=== PATIENT | male | born 1965 | race Caucasian/White ===

== ENCOUNTER 2016-07-14 17:51 | Inpatient (IN) | payer MEDICARE, MEDICAID ==
[~2016-07-14] VITALS: Ht 188 cm; Wt 67.1 kg
[~2016-07-14 17:51] MED LIST: CARB200T6 PO; NALT50TA10 PO; QUET200T PO; RISP3 PO
[2016-07-14 19:16] VITALS: BP 177/114
[2016-07-14] MEDS ORDERED: ZOLPIDEM TARTRATE 10 MG TABLET PO PRN (20:45)
[2016-07-14] MEDS ORDERED: QUEtiapine FUMARATE 100 MG TABLET PO PRN (20:45)
[2016-07-14] MEDS ORDERED: CarBAMazepine 200 MG TABLET PO SCH (20:57)
[2016-07-14] MEDS ORDERED: QUEtiapine FUMARATE 200 MG TABLET PO SCH (21:00)
[2016-07-14] MEDS ORDERED: CloNIDine HCL 0.1 MG TABLET PO ONE (21:30)
[2016-07-14 21:33] LABS: BASOPHILS # (AUTO) 0.08 K/uL (0.00-0.20); BASOPHILS % (AUTO) 1.1 % (0.0-2.0); HEMATOCRIT 44.9 % (41-53); HEMOGLOBIN 14.9 g/dL (13.5-17.5); LYMPHOCYTES # (AUTO) 1.8 K/uL (1.0-4.8); LYMPHOCYTES % (AUTO) 24.1 % (22.0-44.0); MEAN CORPUSCULAR HEMOGLOBIN 29.9 pg (26.0-34.0); MEAN CORPUSCULAR HGB CONC 33.2 G/dL (31.0-37.0); MEAN CORPUSCULAR VOLUME 90 fL (80-100); MONOCYTES # (AUTO) 0.5 K/uL (0.1-1.0); MONOCYTES % (AUTO) 6.7 % (2.0-9.0); NEUTROPHILS # (AUTO) 4.9 K/uL (1.8-7.7); NEUTROPHILS % (AUTO) 66.8 % (40.0-70.0); PLATELET COUNT (AUTO) 177 K/uL (150-450); RED BLOOD CELL COUNT(AUTO) 4.99 MIL/uL (4.50-5.90); RED CELL DISTRIBUTION WIDTH 13.7 % (11.5-14.5); WHITE BLOOD COUNT (AUTO) 7.4 K/uL (4.5-11.0)
[2016-07-14 22:00] LABS: ANION GAP 7 mmol/L (8-16); CARBON DIOXIDE 29 mmol/L (22-29); CHLORIDE 103 mmol/L (98-107); CREATININE 0.82 mg/dL (0.60-1.30); GLOMERULAR FILTR. RATE CALC > 60 mL/min (>60); POTASSIUM 4.5 mmol/L (3.5-5.1); SODIUM SERUM 139 mmol/L (136-145); UREA NITROGEN, BLOOD 11 mg/dL (7-18)
[2016-07-14 22:05] LABS: ALANINE AMINOTRANSFERASE 32 U/L (12-78); ALBUMIN 3.9 g/dL (3.4-5.0); ASPARTATE AMINOTRANSFERASE 23 U/L (15-37); BILIRUBIN,TOTAL 0.3 mg/dL (0.1-1.0); TOTAL PROTEIN, SERUM 7.9 g/dL (6.4-8.2)
[2016-07-14] MEDS ORDERED: LABETALOL HCL 5 MG/ML 20 ML VIAL IVP ONE (22:30)
[2016-07-15 01:01] VITALS: BP 133/90
[2016-07-15 07:34] LABS: BASOPHILS # (AUTO) 0.05 K/uL (0.00-0.20); BASOPHILS % (AUTO) 0.8 % (0.0-2.0); EOSINOPHILS # (AUTO) 0.16 K/uL (0.00-0.70); EOSINOPHILS % (AUTO) 2.81 % (1.0-6.0); HEMATOCRIT 40.5 % (41-53); LYMPHOCYTES % (AUTO) 36.2 % (22.0-44.0); MEAN CORPUSCULAR HEMOGLOBIN 30.4 pg (26.0-34.0); MEAN CORPUSCULAR HGB CONC 34.5 G/dL (31.0-37.0); MEAN CORPUSCULAR VOLUME 88 fL (80-100); MONOCYTES # (AUTO) 0.4 K/uL (0.1-1.0); MONOCYTES % (AUTO) 7.7 % (2.0-9.0); NEUTROPHILS # (AUTO) 2.9 K/uL (1.8-7.7); NEUTROPHILS % (AUTO) 52.4 % (40.0-70.0); PLATELET COUNT (AUTO) 147 K/uL (150-450); RED BLOOD CELL COUNT(AUTO) 4.59 MIL/uL (4.50-5.90); WHITE BLOOD COUNT (AUTO) 5.6 K/uL (4.5-11.0)
[2016-07-15 07:56] LABS: HEMOGLOBIN A1C 5.6 % (4.5-6.2)
[2016-07-15 08:00] VITALS: BP 144/96
[2016-07-15] MEDS: CarBAMazepine 200 MG TABLET PO SCH ×2 (08:00→16:23)
[2016-07-15] MEDS: LORazepam 2 MG TABLET PO PRN ×2 (08:00→15:42)
[2016-07-15 08:01] LABS: ALANINE AMINOTRANSFERASE 25 U/L (12-78); ALBUMIN 3.4 g/dL (3.4-5.0); ANION GAP 10 mmol/L (8-16); ASPARTATE AMINOTRANSFERASE 22 U/L (15-37); BILIRUBIN,TOTAL 0.2 mg/dL (0.1-1.0); CALCIUM, TOTAL 8.7 mg/dL (8.8-10.5); CARBON DIOXIDE 26 mmol/L (22-29); CHLORIDE 106 mmol/L (98-107); CHOL/HDL RATIO 2.9 (4.2-7.3); CREATININE 0.73 mg/dL (0.60-1.30); GLOMERULAR FILTR. RATE CALC > 60 mL/min (>60); POTASSIUM 4.1 mmol/L (3.5-5.1); SODIUM SERUM 142 mmol/L (136-145); THYROID STIMULATING HORMONE 2.35 uIU/mL (0.36-3.74); TOTAL PROTEIN, SERUM 6.9 g/dL (6.4-8.2); UREA NITROGEN, BLOOD 14 mg/dL (7-18)
[2016-07-15] MEDS ORDERED: NALTREXONE HCL 50 MG TABLET PO SCH (09:00)
[2016-07-15] MEDS ORDERED: HydrOXYzine PAMOATE 50 MG CAPSULE PO PRN (12:15)
[2016-07-15] MEDS ORDERED: ACETAMINOPHEN 325 MG TABLET PO PRN (12:15)
[2016-07-15] MEDS ORDERED: MAG HYDROX/AL HYDROX/SIMETH ES 30 ML SUSPENSION UDCUP PO PRN (12:15)
[2016-07-15] MEDS ORDERED: GuaiFENesin/D-METHORPHAN [SUGAR-FREE] 200-20MG/10 ML SYRUP UDCUP PO PRN (12:15)
[2016-07-15] MEDS ORDERED: MAGNESIUM HYDROXIDE SUSPENSION 30 ML UDCUP PO PRN (12:15)
[2016-07-15] MEDS ORDERED: LOPERAMIDE HCL 2 MG CAPSULE PO PRN (12:15)
[2016-07-15] MEDS ORDERED: PROMETHAZINE HCL 25 MG TABLET PO PRN (12:15)
[2016-07-15] MEDS ORDERED: CARB200T6 PO (16:02)
[2016-07-15] MEDS ORDERED: QUET200T29 PO (16:02)
[2016-07-15] MEDS ORDERED: NALT50 PO (16:02)
[2016-07-15] MEDS ORDERED: THIAMINE HCL 100 MG TABLET PO SCH (17:00)
[2016-07-16] MEDS ORDERED: FOLIC ACID 1 MG TABLET PO SCH (09:00)
[2016-07-16] MEDS ORDERED: MULTIVITAMINS WITH MINERALS, THERAPEUTIC TABLET PO SCH (09:00)
[2016-07-16] MEDS ORDERED: CHOLECALCIFEROL (VIT D3) 5,000 UNITS CAPSULE PO SCH (09:00)
== END 2016-07-15 17:00 | disposition home or self-care (01) | DRG 885 ==
LOC: BV PSY EVL 20:28 → 3EX 20:45
PROVIDERS: ADMIT Psychiatry & Neurology Psychiatry; ATTEND Psychiatry & Neurology Psychiatry
PROC: GZ51ZZZ Individual Psychotherapy, Behavioral (ICD-10-PCS; principal; 2016-07-14)
DX: F25.0 Schizoaffective disorder, bipolar type (principal); G47.00 Insomnia, unspecified; F31.60 Bipolar disorder, current episode mixed, unspecified; F20.0 Paranoid schizophrenia; I10 Essential (primary) hypertension; J44.9 Chronic obstructive pulmonary disease, unspecified; K21.9 Gastro-esophageal reflux disease without esophagitis; F17.210 Nicotine dependence, cigarettes, uncomplicated; F15.90 Other stimulant use, unspecified, uncomplicated; B19.20 Unspecified viral hepatitis C without hepatic coma; Z88.6 Allergy status to analgesic agent; I25.2 Old myocardial infarction; Z88.5 Allergy status to narcotic agent; Z88.8 Allergy status to other drugs, medicaments and biological substances; Z79.899 Other long term (current) drug therapy; Z59.0 Homelessness; Z98.890 Other specified postprocedural states; Z91.19 Patient's noncompliance with other medical treatment and regimen; Z90.49 Acquired absence of other specified parts of digestive tract
CPT/HCPCS: 83036; 84439; 84443; 93005; 99285; J3490

== ENCOUNTER 2016-08-23 22:05 | Inpatient (IN) | payer MEDICARE, MEDICAID ==
[~2016-08-23] VITALS: Ht 188 cm; Wt 65.3 kg
[~2016-08-23 22:05] MED LIST changes: +NALT50 PO; -NALT50TA10 PO; -QUET200T PO; +QUET200T29 PO; -RISP3 PO
[2016-08-23] MEDS ORDERED: HALOPERIDOL 5 MG TABLET PO PRN (22:45)
[2016-08-23 22:53] VITALS: BP 141/105
[2016-08-23] MEDS ORDERED: RISP3 PO (23:41)
[2016-08-23] MEDS ORDERED: CARB200T6 PO (23:41)
[2016-08-23] MEDS ORDERED: BENA20 PO (23:41)
[2016-08-24] MEDS ORDERED: LORazepam 2 MG TABLET PO ONE (00:30)
[2016-08-24] MEDS ORDERED: BENAZEPRIL HCL 10 MG TABLET PO ONE (00:30)
[2016-08-24 00:42] LABS: BASOPHILS # (AUTO) 0.04 K/uL (0.00-0.20); BASOPHILS % (AUTO) 0.7 % (0.0-2.0); EOSINOPHILS # (AUTO) 0.24 K/uL (0.00-0.70); EOSINOPHILS % (AUTO) 3.55 % (1.0-6.0); HEMATOCRIT 39.6 % (41-53); HEMOGLOBIN 13.3 g/dL (13.5-17.5); LYMPHOCYTES # (AUTO) 2.3 K/uL (1.0-4.8); MEAN CORPUSCULAR HEMOGLOBIN 30.4 pg (26.0-34.0); MEAN CORPUSCULAR HGB CONC 33.6 G/dL (31.0-37.0); MEAN CORPUSCULAR VOLUME 90 fL (80-100); MONOCYTES # (AUTO) 0.7 K/uL (0.1-1.0); MONOCYTES % (AUTO) 9.7 % (2.0-9.0); NEUTROPHILS # (AUTO) 3.6 K/uL (1.8-7.7); NEUTROPHILS % (AUTO) 52.1 % (40.0-70.0); PLATELET COUNT (AUTO) 201 K/uL (150-450); RED BLOOD CELL COUNT(AUTO) 4.38 MIL/uL (4.50-5.90); RED CELL DISTRIBUTION WIDTH 13.2 % (11.5-14.5); WHITE BLOOD COUNT (AUTO) 6.9 K/uL (4.5-11.0)
[2016-08-24 00:47] LABS: ANION GAP 4 mmol/L (8-16); CALCIUM, TOTAL 8.7 mg/dL (8.8-10.5); CARBON DIOXIDE 32 mmol/L (22-29); CHLORIDE 104 mmol/L (98-107); CREATININE 0.82 mg/dL (0.60-1.30); GLOMERULAR FILTR. RATE CALC > 60 mL/min (>60); POTASSIUM 3.9 mmol/L (3.5-5.1); SODIUM SERUM 140 mmol/L (136-145); UREA NITROGEN, BLOOD 14 mg/dL (7-18)
[2016-08-24 00:52] LABS: ALANINE AMINOTRANSFERASE 23 U/L (12-78); ALBUMIN 3.2 g/dL (3.4-5.0); ASPARTATE AMINOTRANSFERASE 22 U/L (15-37); BILIRUBIN,TOTAL 0.2 mg/dL (0.1-1.0); TOTAL PROTEIN, SERUM 6.8 g/dL (6.4-8.2)
[2016-08-24] MEDS ORDERED: BENAZEPRIL HCL 5 MG TABLET PO ONE (01:00)
[2016-08-24 02:10] VITALS: BP 143/89
[2016-08-24] MEDS: ZOLPIDEM TARTRATE 10 MG TABLET PO PRN (02:16)
[2016-08-24 08:10] VITALS: BP 103/75
[2016-08-24 08:40] LABS: BASOPHILS % (AUTO) 1.1 % (0.0-2.0); EOSINOPHILS % (AUTO) 3.4 % (1.0-6.0); HEMATOCRIT 41.1 % (41-53); HEMOGLOBIN 13.6 g/dL (13.5-17.5); LYMPHOCYTES # (AUTO) 1.9 K/uL (1.0-4.8); LYMPHOCYTES % (AUTO) 30.5 % (22.0-44.0); MEAN CORPUSCULAR HEMOGLOBIN 30.2 pg (26.0-34.0); MEAN CORPUSCULAR HGB CONC 33.1 G/dL (31.0-37.0); MEAN CORPUSCULAR VOLUME 91 fL (80-100); MONOCYTES # (AUTO) 0.6 K/uL (0.1-1.0); MONOCYTES % (AUTO) 9.3 % (2.0-9.0); NEUTROPHILS # (AUTO) 3.4 K/uL (1.8-7.7); NEUTROPHILS % (AUTO) 55.7 % (40.0-70.0); PLATELET COUNT (AUTO) 214 K/uL (150-450); WHITE BLOOD COUNT (AUTO) 6.2 K/uL (4.5-11.0)
[2016-08-24 09:46] LABS: ALANINE AMINOTRANSFERASE 21 U/L (12-78); ALBUMIN 3.2 g/dL (3.4-5.0); ANION GAP 9 mmol/L (8-16); ASPARTATE AMINOTRANSFERASE 23 U/L (15-37); BILIRUBIN,TOTAL 0.2 mg/dL (0.1-1.0); CALCIUM, TOTAL 8.5 mg/dL (8.8-10.5); CARBON DIOXIDE 27 mmol/L (22-29); CHLORIDE 105 mmol/L (98-107); CREATININE 0.71 mg/dL (0.60-1.30); GLOMERULAR FILTR. RATE CALC > 60 mL/min (>60); POTASSIUM 3.8 mmol/L (3.5-5.1); SODIUM SERUM 141 mmol/L (136-145); THYROID STIMULATING HORMONE 1.89 uIU/mL (0.36-3.74); TOTAL PROTEIN, SERUM 6.8 g/dL (6.4-8.2); UREA NITROGEN, BLOOD 14 mg/dL (7-18)
[2016-08-24] MEDS ORDERED: GuaiFENesin/D-METHORPHAN [SUGAR-FREE] 200-20MG/10 ML SYRUP UDCUP PO PRN (11:30)
[2016-08-24] MEDS ORDERED: LOPERAMIDE HCL 2 MG CAPSULE PO PRN (11:30)
[2016-08-24] MEDS ORDERED: ACETAMINOPHEN 325 MG TABLET PO PRN ×3 (11:30→23:00)
[2016-08-24] MEDS ORDERED: HydrOXYzine PAMOATE 50 MG CAPSULE PO PRN (11:30)
[2016-08-24] MEDS ORDERED: MAGNESIUM HYDROXIDE SUSPENSION 30 ML UDCUP PO PRN (11:30)
[2016-08-24] MEDS ORDERED: MAG HYDROX/AL HYDROX/SIMETH ES 30 ML SUSPENSION UDCUP PO PRN (11:30)
[2016-08-24] MEDS ORDERED: PROMETHAZINE HCL 25 MG TABLET PO PRN (11:30)
[2016-08-24 12:59] VITALS: BP 146/84
[2016-08-24] MEDS: LORazepam 2 MG TABLET PO PRN (14:59)
[2016-08-24 16:39] VITALS: BP 120/79
[2016-08-24] MEDS: CarBAMazepine 200 MG TABLET PO SCH (17:03)
[2016-08-24] MEDS: THIAMINE HCL 100 MG TABLET PO SCH (17:03)
[2016-08-24] MEDS: QUEtiapine FUMARATE 200 MG TABLET PO SCH (20:45)
[2016-08-24 20:55] VITALS: BP 116/82
[2016-08-24] MEDS ORDERED: CloNIDine HCL 0.1 MG TABLET PO PRN (23:00)
[2016-08-24] MEDS ORDERED: IBUPROFEN 400 MG TABLET PO PRN (23:00)
[2016-08-25] VITALS (7 sets, daily range): BP systolic 113–134; BP diastolic 75–89
[2016-08-25] MEDS: LORazepam 2 MG TABLET PO PRN ×3 (05:37→16:24)
[2016-08-25 08:34] LABS: HEMOGLOBIN A1C 5.4 % (4.5-6.2)
[2016-08-25 08:48] LABS: CHOL/HDL RATIO 3.4 (4.2-7.3); THYROID STIMULATING HORMONE 0.98 uIU/mL (0.36-3.74)
[2016-08-25] MEDS: MULTIVITAMINS WITH MINERALS, THERAPEUTIC TABLET PO SCH (08:56)
[2016-08-25] MEDS: ASPIRIN 81 MG CHEWABLE TABLET PO SCH (08:56)
[2016-08-25] MEDS: FOLIC ACID 1 MG TABLET PO SCH (08:56)
[2016-08-25] MEDS: NALTREXONE HCL 50 MG TABLET PO SCH (08:56)
[2016-08-25] MEDS: THIAMINE HCL 100 MG TABLET PO SCH ×2 (08:56→16:37)
[2016-08-25] MEDS: CarBAMazepine 200 MG TABLET PO SCH ×2 (08:56→16:37)
[2016-08-25] MEDS: OMEPRAZOLE 20 MG CAPSULE PO SCH (08:56)
[2016-08-25] MEDS: NICOTINE 21 MG/24 HOUR PATCH TD SCH (12:19)
[2016-08-25] MEDS: QUEtiapine FUMARATE 100 MG TABLET PO PRN (13:29)
[2016-08-25] MEDS: IBUPROFEN 400 MG TABLET PO PRN (19:56)
[2016-08-25] MEDS: QUEtiapine FUMARATE 200 MG TABLET PO SCH (20:36)
[2016-08-25] MEDS: ZOLPIDEM TARTRATE 10 MG TABLET PO PRN (20:50)
[2016-08-26 06:48] VITALS: BP 130/77
[2016-08-26 08:11] VITALS: BP 132/74
[2016-08-26] MEDS: THIAMINE HCL 100 MG TABLET PO SCH ×2 (09:04→16:31)
[2016-08-26] MEDS: OMEPRAZOLE 20 MG CAPSULE PO SCH (09:05)
[2016-08-26] MEDS: MULTIVITAMINS WITH MINERALS, THERAPEUTIC TABLET PO SCH (09:05)
[2016-08-26] MEDS: NALTREXONE HCL 50 MG TABLET PO SCH (09:05)
[2016-08-26] MEDS: CarBAMazepine 200 MG TABLET PO SCH ×2 (09:05→16:31)
[2016-08-26] MEDS: ASPIRIN 81 MG CHEWABLE TABLET PO SCH (09:05)
[2016-08-26] MEDS: FOLIC ACID 1 MG TABLET PO SCH (09:05)
[2016-08-26] MEDS: NICOTINE 21 MG/24 HOUR PATCH TD SCH (09:06)
[2016-08-26] MEDS: QUEtiapine FUMARATE 100 MG TABLET PO PRN (09:12)
[2016-08-26] MEDS: LORazepam 2 MG TABLET PO PRN ×2 (12:11→18:09)
[2016-08-26 16:13] VITALS: BP 127/68
[2016-08-26] MEDS: QUEtiapine FUMARATE 200 MG TABLET PO SCH (20:06)
[2016-08-26] MEDS: ZOLPIDEM TARTRATE 10 MG TABLET PO PRN (21:22)
[2016-08-27 00:08] VITALS: BP 119/89
[2016-08-27] MEDS: QUEtiapine FUMARATE 100 MG TABLET PO PRN ×2 (00:22→16:16)
[2016-08-27] MEDS: LORazepam 2 MG TABLET PO PRN ×2 (01:04→13:10)
[2016-08-27 08:13] VITALS: BP 125/60
[2016-08-27] MEDS: ASPIRIN 81 MG CHEWABLE TABLET PO SCH (09:05)
[2016-08-27] MEDS: FOLIC ACID 1 MG TABLET PO SCH (09:05)
[2016-08-27] MEDS: CarBAMazepine 200 MG TABLET PO SCH ×2 (09:05→16:45)
[2016-08-27] MEDS: OMEPRAZOLE 20 MG CAPSULE PO SCH (09:05)
[2016-08-27] MEDS: NALTREXONE HCL 50 MG TABLET PO SCH (09:05)
[2016-08-27] MEDS: MULTIVITAMINS WITH MINERALS, THERAPEUTIC TABLET PO SCH (09:05)
[2016-08-27] MEDS: THIAMINE HCL 100 MG TABLET PO SCH ×2 (09:05→16:40)
[2016-08-27] MEDS: NICOTINE 21 MG/24 HOUR PATCH TD SCH (09:06)
[2016-08-27 16:23] VITALS: BP 105/82
[2016-08-27] MEDS: QUEtiapine FUMARATE 200 MG TABLET PO SCH (20:39)
[2016-08-28 01:51] VITALS: BP 132/85
[2016-08-28 06:20] VITALS: BP 123/89
[2016-08-28] MEDS: LORazepam 2 MG TABLET PO PRN ×3 (06:24→15:56)
[2016-08-28] MEDS: QUEtiapine FUMARATE 100 MG TABLET PO PRN ×2 (06:47→11:49)
[2016-08-28 08:13] VITALS: BP 108/76
[2016-08-28] MEDS: CarBAMazepine 200 MG TABLET PO SCH ×2 (09:10→16:42)
[2016-08-28] MEDS: NALTREXONE HCL 50 MG TABLET PO SCH (09:10)
[2016-08-28] MEDS: ASPIRIN 81 MG CHEWABLE TABLET PO SCH (09:10)
[2016-08-28] MEDS: THIAMINE HCL 100 MG TABLET PO SCH ×2 (09:10→16:42)
[2016-08-28] MEDS: FOLIC ACID 1 MG TABLET PO SCH (09:10)
[2016-08-28] MEDS: OMEPRAZOLE 20 MG CAPSULE PO SCH (09:10)
[2016-08-28] MEDS: MULTIVITAMINS WITH MINERALS, THERAPEUTIC TABLET PO SCH (09:10)
[2016-08-28] MEDS: NICOTINE 21 MG/24 HOUR PATCH TD SCH (09:11)
[2016-08-28 12:01] VITALS: BP 112/74
[2016-08-28] MEDS: IBUPROFEN 400 MG TABLET PO PRN (12:01)
[2016-08-28 16:30] VITALS: BP 113/75
[2016-08-28] MEDS ORDERED: QUEtiapine FUMARATE 300 MG TABLET PO SCH (21:00)
[2016-08-29 00:30] VITALS: BP 117/76
[2016-08-29 08:13] VITALS: BP 115/80
[2016-08-29] MEDS: MULTIVITAMINS WITH MINERALS, THERAPEUTIC TABLET PO SCH (09:03)
[2016-08-29] MEDS: OMEPRAZOLE 20 MG CAPSULE PO SCH (09:03)
[2016-08-29] MEDS: NALTREXONE HCL 50 MG TABLET PO SCH (09:03)
[2016-08-29] MEDS: ASPIRIN 81 MG CHEWABLE TABLET PO SCH (09:03)
[2016-08-29] MEDS: FOLIC ACID 1 MG TABLET PO SCH (09:03)
[2016-08-29] MEDS: CarBAMazepine 200 MG TABLET PO SCH ×2 (09:03→16:23)
[2016-08-29] MEDS: THIAMINE HCL 100 MG TABLET PO SCH ×2 (09:03→16:23)
[2016-08-29] MEDS: NICOTINE 21 MG/24 HOUR PATCH TD SCH (09:04)
[2016-08-29] MEDS: LORazepam 2 MG TABLET PO PRN (09:04)
[2016-08-29] MEDS: QUEtiapine FUMARATE 100 MG TABLET PO PRN (13:27)
[2016-08-29] MEDS ORDERED: QUET300T18 PO (15:07)
[2016-08-29] MEDS ORDERED: CARB200T6 PO (15:07)
[2016-08-29] MEDS ORDERED: NALT50 PO ×2 (15:07→16:07)
[2016-08-29] MEDS ORDERED: ASPI-1061 PO ×2 (15:47→15:53)
[2016-08-29] MEDS ORDERED: QUET300T2 PO (16:06)
== END 2016-08-29 16:30 | disposition home or self-care (01) | DRG 885 ==
LOC: BV PSY EVL 23:15 → B2X 23:45
PROVIDERS: ATTEND Psychiatry & Neurology Psychiatry
DX: F25.9 Schizoaffective disorder, unspecified (principal); R45.851 Suicidal ideations; F17.210 Nicotine dependence, cigarettes, uncomplicated; G40.909 Epilepsy, unspecified, not intractable, without status epilepticus; I10 Essential (primary) hypertension; J44.9 Chronic obstructive pulmonary disease, unspecified; B19.20 Unspecified viral hepatitis C without hepatic coma; E78.5 Hyperlipidemia, unspecified; I25.10 Atherosclerotic heart disease of native coronary artery without angina pectoris; F19.90 Other psychoactive substance use, unspecified, uncomplicated; K21.9 Gastro-esophageal reflux disease without esophagitis; F10.20 Alcohol dependence, uncomplicated; Z59.0 Homelessness; Z90.89 Acquired absence of other organs; Z88.6 Allergy status to analgesic agent; Z88.8 Allergy status to other drugs, medicaments and biological substances; Z91.14 Patient's other noncompliance with medication regimen; Z79.82 Long term (current) use of aspirin
CPT/HCPCS: 83036; 84439; 84443; 99285; G0480

== ENCOUNTER 2016-08-31 16:10 | Inpatient (IN) | payer MEDICARE, MEDICAID ==
[~2016-08-31] VITALS: Ht 188 cm; Wt 67.0 kg
[~2016-08-31 16:10] MED LIST changes: +ASPI-1061 PO; -QUET200T29 PO; +QUET300T18 PO; +QUET300T2 PO
[2016-08-31] MEDS ORDERED: ZOLPIDEM TARTRATE 10 MG TABLET PO PRN (18:30)
[2016-08-31 19:03] LABS: BASOPHILS % (AUTO) 1.1 % (0.0-2.0); EOSINOPHILS % (AUTO) 1.4 % (1.0-6.0); HEMATOCRIT 41.4 % (41-53); HEMOGLOBIN 13.7 g/dL (13.5-17.5); LYMPHOCYTES # (AUTO) 2.3 K/uL (1.0-4.8); MEAN CORPUSCULAR HEMOGLOBIN 29.8 pg (26.0-34.0); MEAN CORPUSCULAR HGB CONC 33.1 G/dL (31.0-37.0); MEAN CORPUSCULAR VOLUME 90 fL (80-100); MONOCYTES # (AUTO) 0.7 K/uL (0.1-1.0); MONOCYTES % (AUTO) 8.9 % (2.0-9.0); NEUTROPHILS # (AUTO) 4.3 K/uL (1.8-7.7); NEUTROPHILS % (AUTO) 57.6 % (40.0-70.0); PLATELET COUNT (AUTO) 199 K/uL (150-450); RED CELL DISTRIBUTION WIDTH 13.8 % (11.5-14.5); WHITE BLOOD COUNT (AUTO) 7.4 K/uL (4.5-11.0)
[2016-08-31 19:17] LABS: ANION GAP 10 mmol/L (8-16); CARBON DIOXIDE 27 mmol/L (22-29); CHLORIDE 101 mmol/L (98-107); CREATININE 0.74 mg/dL (0.60-1.30); GLOMERULAR FILTR. RATE CALC > 60 mL/min (>60); POTASSIUM 4.3 mmol/L (3.5-5.1); SODIUM SERUM 138 mmol/L (136-145); UREA NITROGEN, BLOOD 14 mg/dL (7-18)
[2016-08-31 19:24] LABS: ALANINE AMINOTRANSFERASE 32 U/L (12-78); ALBUMIN 3.6 g/dL (3.4-5.0); ASPARTATE AMINOTRANSFERASE 38 U/L (15-37); BILIRUBIN,TOTAL 0.6 mg/dL (0.1-1.0); TOTAL PROTEIN, SERUM 7.6 g/dL (6.4-8.2)
[2016-08-31] MEDS: LORazepam 2 MG TABLET PO PRN (19:54)
[2016-08-31] MEDS: QUEtiapine FUMARATE 300 MG TABLET PO SCH (20:01)
[2016-09-01 01:33] VITALS: BP 116/68
[2016-09-01] MEDS ORDERED: PNEUMOCOCCAL VACCINE POLYVALENT 0.5 ML VIAL [PPSV23] IM ONE (02:30)
[2016-09-01] MEDS ORDERED: -PHARMACY VACCINE NOTE- MISC ONE ×2 (02:30)
[2016-09-01 08:14] VITALS: BP 107/70
[2016-09-01] MEDS: CarBAMazepine 200 MG TABLET PO SCH ×2 (09:25→16:39)
[2016-09-01] MEDS: LORazepam 2 MG TABLET PO PRN (09:30)
[2016-09-01] MEDS ORDERED: HydrOXYzine PAMOATE 50 MG CAPSULE PO PRN (10:15)
[2016-09-01] MEDS ORDERED: GuaiFENesin/D-METHORPHAN [SUGAR-FREE] 200-20MG/10 ML SYRUP UDCUP PO PRN (10:15)
[2016-09-01] MEDS ORDERED: PALIPERIDONE PALMITATE 234 MG/1.5 ML SYRINGE IM ONE (10:15)
[2016-09-01] MEDS ORDERED: PROMETHAZINE HCL 25 MG TABLET PO PRN (10:15)
[2016-09-01] MEDS ORDERED: MAG HYDROX/AL HYDROX/SIMETH ES 30 ML SUSPENSION UDCUP PO PRN (10:15)
[2016-09-01] MEDS ORDERED: LOPERAMIDE HCL 2 MG CAPSULE PO PRN (10:15)
[2016-09-01] MEDS ORDERED: MAGNESIUM HYDROXIDE SUSPENSION 30 ML UDCUP PO PRN (10:15)
[2016-09-01] MEDS: NALTREXONE HCL 50 MG TABLET PO SCH (12:49)
[2016-09-01] MEDS: QUEtiapine FUMARATE 100 MG TABLET PO PRN ×2 (15:02→20:33)
[2016-09-01] MEDS: THIAMINE HCL 100 MG TABLET PO SCH (16:39)
[2016-09-01 18:34] VITALS: BP 125/82
[2016-09-01] MEDS: QUEtiapine FUMARATE 300 MG TABLET PO SCH (21:29)
[2016-09-02 08:00] VITALS: BP 137/98
[2016-09-02] MEDS: CarBAMazepine 200 MG TABLET PO SCH ×2 (08:27→16:07)
[2016-09-02] MEDS: MULTIVITAMINS WITH MINERALS, THERAPEUTIC TABLET PO SCH (08:27)
[2016-09-02] MEDS: NALTREXONE HCL 50 MG TABLET PO SCH (08:28)
[2016-09-02] MEDS: FOLIC ACID 1 MG TABLET PO SCH (08:28)
[2016-09-02] MEDS: THIAMINE HCL 100 MG TABLET PO SCH ×2 (08:28→16:07)
[2016-09-02] MEDS: LORazepam 2 MG TABLET PO PRN (08:32)
[2016-09-02] MEDS: ACETAMINOPHEN 325 MG TABLET PO PRN (16:15)
[2016-09-02 16:16] VITALS: BP 132/74
[2016-09-02] MEDS: QUEtiapine FUMARATE 100 MG TABLET PO PRN (17:54)
[2016-09-02] MEDS ORDERED: QUEtiapine FUMARATE 300 MG TABLET PO PRN (21:00)
[2016-09-03] MEDS: LORazepam 2 MG TABLET PO PRN ×2 (01:36→16:35)
[2016-09-03 01:41] VITALS: BP 122/80
[2016-09-03] MEDS: FOLIC ACID 1 MG TABLET PO SCH (08:06)
[2016-09-03] MEDS: MULTIVITAMINS WITH MINERALS, THERAPEUTIC TABLET PO SCH (08:06)
[2016-09-03] MEDS: THIAMINE HCL 100 MG TABLET PO SCH ×2 (08:06→16:35)
[2016-09-03] MEDS: CarBAMazepine 200 MG TABLET PO SCH ×2 (08:06→16:35)
[2016-09-03] MEDS: NALTREXONE HCL 50 MG TABLET PO SCH (08:06)
[2016-09-03 08:15] VITALS: BP 135/99
[2016-09-03] MEDS: QUEtiapine FUMARATE 100 MG TABLET PO PRN (10:51)
[2016-09-03 18:57] VITALS: BP 144/96
[2016-09-04] MEDS: QUEtiapine FUMARATE 100 MG TABLET PO PRN ×2 (02:05→14:58)
[2016-09-04 02:27] VITALS: BP 132/88
[2016-09-04] MEDS: LORazepam 2 MG TABLET PO PRN ×2 (07:59→14:58)
[2016-09-04] MEDS: THIAMINE HCL 100 MG TABLET PO SCH ×2 (08:01→17:04)
[2016-09-04] MEDS: MULTIVITAMINS WITH MINERALS, THERAPEUTIC TABLET PO SCH (08:01)
[2016-09-04] MEDS: CarBAMazepine 200 MG TABLET PO SCH ×2 (08:01→17:04)
[2016-09-04] MEDS: FOLIC ACID 1 MG TABLET PO SCH (08:01)
[2016-09-04] MEDS: NALTREXONE HCL 50 MG TABLET PO SCH (08:01)
[2016-09-04] MEDS ORDERED: IBUPROFEN 400 MG TABLET PO PRN (09:00)
[2016-09-04] MEDS: NICOTINE 14 MG/24 HOUR PATCH TD SCH (09:22)
[2016-09-04 09:25] VITALS: BP 126/90
[2016-09-04 10:25] VITALS: BP 120/88
[2016-09-04] MEDS: ACETAMINOPHEN 325 MG TABLET PO PRN (17:03)
[2016-09-04 19:16] VITALS: BP 125/80
[2016-09-05 08:15] VITALS: BP 128/92
[2016-09-05] MEDS: CarBAMazepine 200 MG TABLET PO SCH (08:56)
[2016-09-05] MEDS: NALTREXONE HCL 50 MG TABLET PO SCH (08:56)
[2016-09-05] MEDS: MULTIVITAMINS WITH MINERALS, THERAPEUTIC TABLET PO SCH (08:56)
[2016-09-05] MEDS: FOLIC ACID 1 MG TABLET PO SCH (08:56)
[2016-09-05] MEDS: THIAMINE HCL 100 MG TABLET PO SCH (08:56)
[2016-09-05] MEDS: NICOTINE 14 MG/24 HOUR PATCH TD SCH (08:57)
[2016-09-05] MEDS ORDERED: PALIPERIDONE PALMITATE 156 MG/ML SYRINGE IM ONE (09:00)
[2016-09-05] MEDS ORDERED: PALI234D IM (11:03)
== END 2016-09-05 10:00 | disposition home or self-care (01) | DRG 885 ==
LOC: EMS 16:12 → 3EX 20:30
PROVIDERS: ADMIT Psychiatry & Neurology Psychiatry; ATTEND Psychiatry & Neurology Psychiatry
PROC: GZ51ZZZ Individual Psychotherapy, Behavioral (ICD-10-PCS; principal; 2016-08-31)
PROC: GZHZZZZ Group Psychotherapy (ICD-10-PCS; 2016-08-31)
DX: F25.1 Schizoaffective disorder, depressive type (principal); R45.851 Suicidal ideations; F15.10 Other stimulant abuse, uncomplicated; E78.5 Hyperlipidemia, unspecified; B19.20 Unspecified viral hepatitis C without hepatic coma; F17.210 Nicotine dependence, cigarettes, uncomplicated; G40.909 Epilepsy, unspecified, not intractable, without status epilepticus; I25.10 Atherosclerotic heart disease of native coronary artery without angina pectoris; F99 Mental disorder, not otherwise specified; F10.20 Alcohol dependence, uncomplicated; I10 Essential (primary) hypertension; J44.9 Chronic obstructive pulmonary disease, unspecified; K21.9 Gastro-esophageal reflux disease without esophagitis; Z79.82 Long term (current) use of aspirin; Z79.899 Other long term (current) drug therapy; Z91.19 Patient's noncompliance with other medical treatment and regimen; Z82.0 Family history of epilepsy and other diseases of the nervous system; Z59.0 Homelessness; Z98.890 Other specified postprocedural states; Z88.6 Allergy status to analgesic agent; Z88.5 Allergy status to narcotic agent; Z88.8 Allergy status to other drugs, medicaments and biological substances; I25.2 Old myocardial infarction; Z28.21 Immunization not carried out because of patient refusal; Z71.51 Drug abuse counseling and surveillance of drug abuser; Z71.6 Tobacco abuse counseling; Z71.41 Alcohol abuse counseling and surveillance of alcoholic
CPT/HCPCS: 87081; 99285; G0480

== ENCOUNTER 2016-11-27 16:24 | Inpatient (IN) | payer MEDICARE, MEDICAID ==
[~2016-11-27] VITALS: Ht 188 cm; Wt 65.6 kg
[2016-11-27 10:45] VITALS: BP 134/78
[2016-11-27 11:45] VITALS: BP 130/82
[~2016-11-27 16:24] MED LIST changes: -ASPI-1061 PO; +PALI234D IM; -QUET300T18 PO; -QUET300T2 PO
[2016-11-27] MEDS ORDERED: ZOLPIDEM TARTRATE 10 MG TABLET PO PRN (18:30)
[2016-11-27] MEDS ORDERED: LORazepam 2 MG TABLET PO PRN (18:30)
[2016-11-27] MEDS ORDERED: RISP3 PO (18:50)
[2016-11-27] MEDS ORDERED: QUET300T2 PO (18:50)
[2016-11-27] MEDS ORDERED: BENA20 PO (18:50)
[2016-11-27] MEDS ORDERED: CARB200T6 PO (18:50)
[2016-11-27] MEDS ORDERED: -PHARMACY VACCINE NOTE- MISC ONE ×2 (21:00)
[2016-11-27] MEDS: QUEtiapine FUMARATE 300 MG TABLET PO SCH (22:31)
[2016-11-27 23:45] VITALS: BP 134/78
[2016-11-28] VITALS (10 sets, daily range): BP systolic 104–134; BP diastolic 51–81
[2016-11-28 06:33] LABS: HEMATOCRIT 42.5 % (41-53); HEMOGLOBIN 14.7 g/dL (13.5-17.5); MEAN CORPUSCULAR HEMOGLOBIN 30.7 pg (26.0-34.0); MEAN CORPUSCULAR HGB CONC 34.6 G/dL (31.0-37.0); MEAN CORPUSCULAR VOLUME 89 fL (80-100); PLATELET COUNT (AUTO) 108 K/uL (150-450); RED BLOOD CELL COUNT(AUTO) 4.79 MIL/uL (4.50-5.90); RED CELL DISTRIBUTION WIDTH 13.7 % (11.5-14.5)
[2016-11-28 06:57] LABS: ALANINE AMINOTRANSFERASE 220 U/L (12-78); ALBUMIN 2.8 g/dL (3.4-5.0); ANION GAP 7 mmol/L (8-16); ASPARTATE AMINOTRANSFERASE 398 U/L (15-37); BILIRUBIN,TOTAL 0.6 mg/dL (0.1-1.0); CALCIUM, TOTAL 7.9 mg/dL (8.8-10.5); CARBON DIOXIDE 27 mmol/L (22-29); CHLORIDE 102 mmol/L (98-107); CHOL/HDL RATIO 3.1 (4.2-7.3); CREATININE 0.74 mg/dL (0.60-1.30); GLOMERULAR FILTR. RATE CALC > 60 mL/min (>60); POTASSIUM 3.6 mmol/L (3.5-5.1); SODIUM SERUM 136 mmol/L (136-145); THYROID STIMULATING HORMONE 1.48 uIU/mL (0.36-3.74); UREA NITROGEN, BLOOD 10 mg/dL (7-18)
[2016-11-28] MEDS ORDERED: LORazepam 2 MG TABLET PO PRN (07:00)
[2016-11-28 09:14] LABS: EOSINOPHILS % (MANUAL) 1 % (1-6); LYMPHOCYTES % (MANUAL) 29 % (22-44); TOTAL CELLS COUNTED 100
[2016-11-28 09:15] LABS: RBC MORPHOLOGY COMMENT NORMAL RBC MORPH
[2016-11-28] MEDS: LORazepam 2 MG TABLET PO SCH ×4 (09:15→20:35)
[2016-11-28] MEDS: QUEtiapine FUMARATE 100 MG TABLET PO SCH (09:15)
[2016-11-28] MEDS ORDERED: BENZOCAINE/MENTHOL LOZENGE [8 LOZENGES/PACKET] MM PRN (11:30)
[2016-11-28] MEDS ORDERED: ALBUTEROL SULFATE HFA 90 MCG/PUFF 8 GM INHALER IH PRN (11:30)
[2016-11-28] MEDS ORDERED: LOPERAMIDE HCL 2 MG CAPSULE PO PRN (11:30)
[2016-11-28] MEDS ORDERED: MAG HYDROX/AL HYDROX/SIMETH ES 30 ML SUSPENSION UDCUP PO PRN (11:30)
[2016-11-28] MEDS ORDERED: CloNIDine HCL 0.1 MG TABLET PO PRN (11:30)
[2016-11-28] MEDS ORDERED: MAGNESIUM HYDROXIDE SUSPENSION 30 ML UDCUP PO PRN (11:30)
[2016-11-28] MEDS ORDERED: ONDANSETRON HCL 4 MG TABLET PO PRN (11:30)
[2016-11-28] MEDS ORDERED: BACITRACIN 28.4 GM OINTMENT TP PRN (11:30)
[2016-11-28] MEDS ORDERED: ACETAMINOPHEN 325 MG TABLET PO PRN (11:30)
[2016-11-28] MEDS ORDERED: PETROLATUM,WHITE 71 GM JELLY TP PRN (11:30)
[2016-11-28] MEDS ORDERED: IBUPROFEN 600 MG TABLET PO PRN (11:30)
[2016-11-28] MEDS: QUEtiapine FUMARATE 300 MG TABLET PO SCH (20:35)
[2016-11-29 06:09] VITALS: BP 138/78
[2016-11-29 08:30] VITALS: BP 108/78
[2016-11-29] MEDS: QUEtiapine FUMARATE 100 MG TABLET PO SCH (08:42)
[2016-11-29] MEDS: CHOLECALCIFEROL (VIT D3) 1,000 UNITS TABLET PO SCH (08:43)
[2016-11-29] MEDS: HALOPERIDOL 5 MG TABLET PO PRN (08:44)
[2016-11-29] MEDS: LORazepam 2 MG TABLET PO SCH ×4 (08:44→21:00)
[2016-11-29 17:00] VITALS: BP 103/59
[2016-11-29 20:54] VITALS: BP 109/55
[2016-11-29] MEDS: QUEtiapine FUMARATE 300 MG TABLET PO SCH (20:55)
[2016-11-30 06:26] VITALS: BP 108/72
[2016-11-30 06:31] VITALS: BP 108/72
[2016-11-30] MEDS ORDERED: LORazepam 1 MG TABLET PO PRN (07:00)
[2016-11-30] MEDS: LORazepam 2 MG TABLET PO PRN (08:10)
[2016-11-30] MEDS: LORazepam 1 MG TABLET PO SCH ×5 (09:00→21:09)
[2016-11-30] MEDS: QUEtiapine FUMARATE 100 MG TABLET PO SCH (09:38)
[2016-11-30] MEDS: CHOLECALCIFEROL (VIT D3) 1,000 UNITS TABLET PO SCH (09:38)
[2016-11-30 10:08] VITALS: BP 103/79
[2016-11-30 16:38] VITALS: BP 108/69
[2016-11-30 16:39] VITALS: BP 108/68
[2016-11-30] MEDS: QUEtiapine FUMARATE 300 MG TABLET PO SCH (21:09)
[2016-12-01 06:54] VITALS: BP 115/65
[2016-12-01 06:55] VITALS: BP 115/65
[2016-12-01] MEDS ORDERED: LORazepam 1 MG TABLET PO PRN (07:00)
[2016-12-01] MEDS: CHOLECALCIFEROL (VIT D3) 1,000 UNITS TABLET PO SCH (08:33)
[2016-12-01] MEDS: LORazepam 2 MG TABLET PO PRN (08:33)
[2016-12-01] MEDS: QUEtiapine FUMARATE 100 MG TABLET PO SCH (08:33)
[2016-12-01 09:14] VITALS: BP 108/64
[2016-12-01 09:16] VITALS: BP 108/64
[2016-12-01 17:00] VITALS: BP 110/69
[2016-12-01 17:04] VITALS: BP 110/69
[2016-12-01] MEDS: QUEtiapine FUMARATE 300 MG TABLET PO SCH (20:17)
[2016-12-02 06:23] VITALS: BP 115/78
[2016-12-02 06:24] VITALS: BP 115/78
[2016-12-02 08:00] VITALS: BP 97/53
[2016-12-02] MEDS: LORazepam 2 MG TABLET PO PRN ×2 (08:15→18:44)
[2016-12-02] MEDS: HALOPERIDOL 5 MG TABLET PO PRN (08:15)
[2016-12-02] MEDS: CHOLECALCIFEROL (VIT D3) 1,000 UNITS TABLET PO SCH (08:16)
[2016-12-02] MEDS: QUEtiapine FUMARATE 100 MG TABLET PO SCH (08:16)
[2016-12-02 13:46] VITALS: BP 106/67
[2016-12-02 16:17] VITALS: BP 108/61
[2016-12-02] MEDS: QUEtiapine FUMARATE 300 MG TABLET PO SCH (20:41)
[2016-12-03 01:30] VITALS: BP 110/70
[2016-12-03] MEDS: QUEtiapine FUMARATE 100 MG TABLET PO SCH (08:10)
[2016-12-03] MEDS: CHOLECALCIFEROL (VIT D3) 1,000 UNITS TABLET PO SCH (08:10)
[2016-12-03 16:15] VITALS: BP 103/62
[2016-12-03] MEDS: LORazepam 2 MG TABLET PO PRN (16:26)
[2016-12-03] MEDS: QUEtiapine FUMARATE 300 MG TABLET PO SCH (20:46)
[2016-12-04 03:32] VITALS: BP 101/68
[2016-12-04 08:00] VITALS: BP 98/58
[2016-12-04] MEDS: QUEtiapine FUMARATE 100 MG TABLET PO SCH (08:51)
[2016-12-04] MEDS: CHOLECALCIFEROL (VIT D3) 1,000 UNITS TABLET PO SCH (08:51)
[2016-12-04 16:15] VITALS: BP 136/78
[2016-12-04] MEDS: QUEtiapine FUMARATE 300 MG TABLET PO SCH (20:40)
[2016-12-05] MEDS: LORazepam 2 MG TABLET PO PRN ×2 (00:57→11:32)
[2016-12-05 01:01] VITALS: BP 102/69
[2016-12-05 08:15] VITALS: BP 96/65
[2016-12-05] MEDS: QUEtiapine FUMARATE 100 MG TABLET PO SCH (08:22)
[2016-12-05] MEDS: CHOLECALCIFEROL (VIT D3) 1,000 UNITS TABLET PO SCH (08:22)
[2016-12-05] MEDS ORDERED: QUET100T PO (12:09)
[2016-12-05] MEDS ORDERED: QUET300T2 PO (12:09)
[2016-12-05] MEDS ORDERED: VITAD1000 PO (12:10)
== END 2016-12-05 13:36 | disposition home or self-care (01) | DRG 885 ==
LOC: 3EI 18:37 → EDSTATUS 19:33 → 3EX 23:13
PROVIDERS: ADMIT Psychiatry & Neurology Psychiatry; ATTEND Psychiatry & Neurology Psychiatry
DX: F25.0 Schizoaffective disorder, bipolar type (principal); F15.20 Other stimulant dependence, uncomplicated; E46 Unspecified protein-calorie malnutrition; R45.851 Suicidal ideations; F10.20 Alcohol dependence, uncomplicated; I10 Essential (primary) hypertension; E55.9 Vitamin D deficiency, unspecified; B18.2 Chronic viral hepatitis C; D69.6 Thrombocytopenia, unspecified; J44.9 Chronic obstructive pulmonary disease, unspecified; G47.00 Insomnia, unspecified; F17.200 Nicotine dependence, unspecified, uncomplicated; K21.9 Gastro-esophageal reflux disease without esophagitis; F41.9 Anxiety disorder, unspecified; I25.10 Atherosclerotic heart disease of native coronary artery without angina pectoris; E78.5 Hyperlipidemia, unspecified; Z79.899 Other long term (current) drug therapy; Z59.0 Homelessness; Z88.8 Allergy status to other drugs, medicaments and biological substances; Z71.6 Tobacco abuse counseling; Z71.51 Drug abuse counseling and surveillance of drug abuser; Z71.41 Alcohol abuse counseling and surveillance of alcoholic; Z88.6 Allergy status to analgesic agent; Z88.5 Allergy status to narcotic agent
CPT/HCPCS: 84436; 84439; 84443

== ENCOUNTER 2016-11-27 19:28 | Emergency (ER) | payer MEDICARE, MEDICAID ==
[~2016-11-27] VITALS: Ht 188 cm; Wt 68.0 kg
[~2016-11-27 19:28] MED LIST changes: +BENA20 PO; +QUET300T2 PO; +RISP3 PO
[2016-11-27 19:56] LABS: HEMATOCRIT 42.7 % (41-53); HEMOGLOBIN 14.7 g/dL (13.5-17.5); MEAN CORPUSCULAR HEMOGLOBIN 30.6 pg (26.0-34.0); MEAN CORPUSCULAR HGB CONC 34.3 G/dL (31.0-37.0); MEAN CORPUSCULAR VOLUME 89 fL (80-100); PLATELET COUNT (AUTO) 120 K/uL (150-450); RED BLOOD CELL COUNT(AUTO) 4.79 MIL/uL (4.50-5.90); WHITE BLOOD COUNT (AUTO) 4.1 K/uL (4.5-11.0)
[2016-11-27 20:03] LABS: ANION GAP 2 mmol/L (8-16); CALCIUM, TOTAL 8.4 mg/dL (8.8-10.5); CARBON DIOXIDE 32 mmol/L (22-29); CHLORIDE 97 mmol/L (98-107); CREATININE 0.86 mg/dL (0.60-1.30); GLOMERULAR FILTR. RATE CALC > 60 mL/min (>60); POTASSIUM 4.4 mmol/L (3.5-5.1); SODIUM SERUM 131 mmol/L (136-145); UREA NITROGEN, BLOOD 11 mg/dL (7-18)
[2016-11-27 20:09] LABS: ALANINE AMINOTRANSFERASE 193 U/L (12-78); ALBUMIN 2.8 g/dL (3.4-5.0); ASPARTATE AMINOTRANSFERASE 364 U/L (15-37); BILIRUBIN,TOTAL 0.6 mg/dL (0.1-1.0); TOTAL PROTEIN, SERUM 6.4 g/dL (6.4-8.2)
[2016-11-27 20:36] LABS: LYMPHOCYTES % (MANUAL) 26 % (22-44); REACTIVE LYMPHOCYTES 5 % (0-0); TOTAL CELLS COUNTED 100
[2016-11-27 21:20] VITALS: BP 128/77
[2016-11-27] MEDS ORDERED: BACITRACIN 0.9 GM PACKET OINTMENT TP ONE (21:30)
[2016-11-28 01:37] LABS: APPEARANCE,URINE CLEAR (CLEAR); GLUCOSE, URINE (UA) NEGATIVE (NEGATIVE); KETONES,URINE NEGATIVE (NEGATIVE); LEUKOCYTE ESTERASE ,URINE NEGATIVE (NEGATIVE); OCCULT BLOOD,URINE NEGATIVE (NEGATIVE); PH,URINE 6.5 (5.0-8.0); PROTEIN,URINE NEGATIVE (NEGATIVE)
[2016-11-28 01:38] LABS: ADD UA MICROSCOPIC NO
== END 2016-11-27 22:13 | disposition other institution (70) ==
LOC: EMS 19:31
DX: F25.9 Schizoaffective disorder, unspecified (principal); K70.30 Alcoholic cirrhosis of liver without ascites; F15.10 Other stimulant abuse, uncomplicated; F31.9 Bipolar disorder, unspecified; F17.210 Nicotine dependence, cigarettes, uncomplicated; I10 Essential (primary) hypertension; I25.2 Old myocardial infarction; Z88.6 Allergy status to analgesic agent; Z88.5 Allergy status to narcotic agent
CPT/HCPCS: 36415; 80053; 80307; 81003; 85025; 99285; G0480

== ENCOUNTER 2017-04-29 18:17 | Inpatient (IN) | payer MEDICARE, MEDICAID ==
[~2017-04-29] VITALS: Ht 188 cm; Wt 60.3 kg
[~2017-04-29 18:17] MED LIST changes: -BENA20 PO; -CARB200T6 PO; -NALT50 PO; -PALI234D IM; +QUET100T PO; -RISP3 PO; +VITAD1000 PO
[2017-04-29 19:22] VITALS: BP 142/90
[2017-04-29] MEDS ORDERED: QUEtiapine FUMARATE 100 MG TABLET PO PRN (19:30)
[2017-04-29] MEDS ORDERED: ZOLPIDEM TARTRATE 10 MG TABLET PO PRN (19:30)
[2017-04-29 20:00] VITALS: BP 145/72
[2017-04-29] MEDS ORDERED: -PHARMACY VACCINE NOTE- MISC ONE ×2 (20:15)
[2017-04-29] MEDS: QUEtiapine FUMARATE 300 MG TABLET PO SCH (20:23)
[2017-04-29] MEDS: LORazepam 2 MG TABLET PO PRN (20:23)
[2017-04-29] MEDS ORDERED: INFLUENZA VIRUS VACCINE QVS 2017-18 (3YR+)/PF 60 MCG/0.5 ML SYRINGE IM ONE (20:45)
[2017-04-29] MEDS ORDERED: PNEUMOCOCCAL VACCINE POLYVALENT 0.5 ML VIAL [PPSV23] IM ONE (20:45)
[2017-04-29 21:41] VITALS: BP 127/75
[2017-04-30 07:07] VITALS: BP 120/80
[2017-04-30 09:05] LABS: APPEARANCE,URINE CLEAR (CLEAR); GLUCOSE, URINE (UA) NEGATIVE (NEGATIVE); KETONES,URINE NEGATIVE (NEGATIVE); LEUKOCYTE ESTERASE ,URINE NEGATIVE (NEGATIVE); OCCULT BLOOD,URINE TRACE (NEGATIVE); PROTEIN,URINE NEGATIVE (NEGATIVE)
[2017-04-30 09:08] VITALS: BP 110/67
[2017-04-30 09:52] LABS: ADD UA MICROSCOPIC YES
[2017-04-30] MEDS: QUEtiapine FUMARATE 100 MG TABLET PO SCH (10:29)
[2017-04-30] MEDS: NICOTINE 21 MG/24 HOUR PATCH TD SCH (10:29)
[2017-04-30 10:40] LABS: RBC,URINE 0-2 /HPF (0-2); SQUAMOUS EPITHELIAL CELL,UR Rare /LPF (None Seen); WBC,URINE None Seen /HPF (0-5)
[2017-04-30] MEDS ORDERED: BENZOCAINE/MENTHOL LOZENGE MM PRN (12:00)
[2017-04-30] MEDS ORDERED: BACITRACIN 28.4 GM OINTMENT TP PRN (12:00)
[2017-04-30] MEDS ORDERED: PETROLATUM,WHITE 71 GM JELLY TP PRN (12:00)
[2017-04-30] MEDS ORDERED: CloNIDine HCL 0.1 MG TABLET PO PRN (12:00)
[2017-04-30] MEDS ORDERED: MAGNESIUM HYDROXIDE SUSPENSION 30 ML UDCUP PO PRN (12:00)
[2017-04-30] MEDS ORDERED: LOPERAMIDE HCL 2 MG CAPSULE PO PRN (12:00)
[2017-04-30] MEDS ORDERED: IBUPROFEN 600 MG TABLET PO PRN (12:00)
[2017-04-30] MEDS ORDERED: MAG HYDROX/AL HYDROX/SIMETH ES 30 ML SUSPENSION UDCUP PO PRN (12:00)
[2017-04-30] MEDS ORDERED: ALBUTEROL SULFATE HFA 90 MCG/PUFF 8 GM INHALER IH PRN (12:00)
[2017-04-30] MEDS ORDERED: ACETAMINOPHEN 325 MG TABLET PO PRN (12:00)
[2017-04-30 16:00] VITALS: BP 123/77
[2017-04-30] MEDS: CarBAMazepine 200 MG TABLET PO SCH (16:25)
[2017-04-30] MEDS: QUEtiapine FUMARATE 300 MG TABLET PO SCH (20:08)
[2017-05-01 01:03] VITALS: BP 100/65
[2017-05-01 08:20] LABS: BASOPHILS % (AUTO) 0.6 % (0.0-2.0); EOSINOPHILS % (AUTO) 1.2 % (1.0-6.0); HEMATOCRIT 43.3 % (41-53); HEMOGLOBIN 14.7 g/dL (13.5-17.5); LYMPHOCYTES # (AUTO) 1.7 K/uL (1.0-4.8); LYMPHOCYTES % (AUTO) 21.8 % (22.0-44.0); MEAN CORPUSCULAR HEMOGLOBIN 30.7 pg (26.0-34.0); MEAN CORPUSCULAR HGB CONC 33.9 G/dL (31.0-37.0); MEAN CORPUSCULAR VOLUME 91 fL (80-100); MONOCYTES # (AUTO) 0.7 K/uL (0.1-1.0); MONOCYTES % (AUTO) 8.7 % (2.0-9.0); NEUTROPHILS # (AUTO) 5.2 K/uL (1.8-7.7); NEUTROPHILS % (AUTO) 67.7 % (40.0-70.0); PLATELET COUNT (AUTO) 266 K/uL (150-450); RED BLOOD CELL COUNT(AUTO) 4.78 MIL/uL (4.50-5.90); RED CELL DISTRIBUTION WIDTH 12.7 % (11.5-14.5); WHITE BLOOD COUNT (AUTO) 7.8 K/uL (4.5-11.0)
[2017-05-01] MEDS: LISINOPRIL 10 MG TABLET PO SCH (08:43)
[2017-05-01] MEDS: QUEtiapine FUMARATE 100 MG TABLET PO SCH (08:43)
[2017-05-01] MEDS: CHOLECALCIFEROL (VIT D3) 1,000 UNITS TABLET PO SCH (08:44)
[2017-05-01] MEDS: NICOTINE 21 MG/24 HOUR PATCH TD SCH (08:44)
[2017-05-01] MEDS: CarBAMazepine 200 MG TABLET PO SCH ×2 (08:44→16:05)
[2017-05-01] MEDS: ASPIRIN 81 MG EC TABLET PO SCH (08:44)
[2017-05-01 09:28] LABS: ALANINE AMINOTRANSFERASE 49 U/L (12-78); ALBUMIN 2.7 g/dL (3.4-5.0); ANION GAP 6 mmol/L (8-16); ASPARTATE AMINOTRANSFERASE 60 U/L (15-37); BILIRUBIN,TOTAL 0.2 mg/dL (0.1-1.0); CALCIUM, TOTAL 8.8 mg/dL (8.8-10.5); CARBON DIOXIDE 29 mmol/L (22-29); CHLORIDE 101 mmol/L (98-107); CHOL/HDL RATIO 3.5 (4.2-7.3); CREATININE 0.77 mg/dL (0.60-1.30); GLOMERULAR FILTR. RATE CALC > 60 mL/min (>60); POTASSIUM 3.9 mmol/L (3.5-5.1); SODIUM SERUM 136 mmol/L (136-145); THYROID STIMULATING HORMONE 0.84 uIU/mL (0.36-3.74); TOTAL PROTEIN, SERUM 7.9 g/dL (6.4-8.2); UREA NITROGEN, BLOOD 16 mg/dL (7-18)
[2017-05-01] MEDS: LORazepam 2 MG TABLET PO PRN (09:36)
[2017-05-01 10:20] VITALS: BP 134/73
[2017-05-01] MEDS ORDERED: HydrOXYzine PAMOATE 50 MG CAPSULE PO PRN (11:45)
[2017-05-01] MEDS ORDERED: GuaiFENesin/D-METHORPHAN [SUGAR-FREE] 200-20MG/10 ML SYRUP UDCUP PO PRN (11:45)
[2017-05-01] MEDS ORDERED: CYANOCOBALAMIN 1,000 MCG/ML VIAL IM ONE (11:45)
[2017-05-01] MEDS ORDERED: PROMETHAZINE HCL 25 MG TABLET PO PRN (11:45)
[2017-05-01] MEDS ORDERED: LOPERAMIDE HCL 2 MG CAPSULE PO PRN (11:45)
[2017-05-01] MEDS: THIAMINE HCL 100 MG TABLET PO SCH (16:05)
[2017-05-01 16:20] VITALS: BP 110/73
[2017-05-01] MEDS: QUEtiapine FUMARATE 200 MG TABLET PO SCH (20:36)
[2017-05-02 07:18] VITALS: BP 104/73
[2017-05-02 08:57] VITALS: BP 111/69
[2017-05-02] MEDS: NICOTINE 21 MG/24 HOUR PATCH TD SCH (09:34)
[2017-05-02] MEDS: LISINOPRIL 10 MG TABLET PO SCH (09:34)
[2017-05-02] MEDS: FOLIC ACID 1 MG TABLET PO SCH (09:34)
[2017-05-02] MEDS: QUEtiapine FUMARATE 100 MG TABLET PO SCH (09:34)
[2017-05-02] MEDS: MULTIVITAMINS WITH MINERALS, THERAPEUTIC TABLET PO SCH (09:34)
[2017-05-02] MEDS: CarBAMazepine 200 MG TABLET PO SCH ×2 (09:34→16:22)
[2017-05-02] MEDS: THIAMINE HCL 100 MG TABLET PO SCH ×2 (09:34→16:22)
[2017-05-02] MEDS: CHOLECALCIFEROL (VIT D3) 1,000 UNITS TABLET PO SCH (09:34)
[2017-05-02] MEDS: ASPIRIN 81 MG EC TABLET PO SCH (09:35)
[2017-05-02] MEDS ORDERED: DIAZEPAM 10 MG TABLET PO ONE (13:30)
[2017-05-02] MEDS ORDERED: DIAZEPAM 10 MG TABLET PO PRN (13:30)
[2017-05-02 14:08] VITALS: BP 125/62
[2017-05-02 16:31] VITALS: BP 106/86
[2017-05-02 20:30] VITALS: BP 105/85
[2017-05-02] MEDS: QUEtiapine FUMARATE 200 MG TABLET PO SCH (20:37)
[2017-05-03] VITALS (8 sets, daily range): BP systolic 103–113; BP diastolic 62–72
[2017-05-03] MEDS ORDERED: DIAZEPAM 10 MG TABLET PO PRN (07:00)
[2017-05-03] MEDS: CHOLECALCIFEROL (VIT D3) 1,000 UNITS TABLET PO SCH (08:59)
[2017-05-03] MEDS: FOLIC ACID 1 MG TABLET PO SCH (08:59)
[2017-05-03] MEDS: QUEtiapine FUMARATE 100 MG TABLET PO SCH (08:59)
[2017-05-03] MEDS: MULTIVITAMINS WITH MINERALS, THERAPEUTIC TABLET PO SCH (08:59)
[2017-05-03] MEDS: NICOTINE 21 MG/24 HOUR PATCH TD SCH (08:59)
[2017-05-03] MEDS: ASPIRIN 81 MG EC TABLET PO SCH (08:59)
[2017-05-03] MEDS: LISINOPRIL 10 MG TABLET PO SCH (08:59)
[2017-05-03] MEDS: THIAMINE HCL 100 MG TABLET PO SCH ×2 (08:59→16:20)
[2017-05-03] MEDS: CarBAMazepine 200 MG TABLET PO SCH ×2 (08:59→16:20)
[2017-05-03] MEDS: DIAZEPAM 10 MG TABLET PO SCH ×4 (08:59→20:43)
[2017-05-03] MEDS ORDERED: CARB200T6 PO (17:31)
[2017-05-03] MEDS ORDERED: QUET200T29 PO (17:31)
[2017-05-03] MEDS ORDERED: QUEtiapine FUMARATE 300 MG TABLET PO SCH (21:00)
[2017-05-04 01:49] VITALS: BP 103/60
[2017-05-04 01:52] VITALS: BP 103/60
[2017-05-04] MEDS ORDERED: NALT50TA6 PO (08:35)
[2017-05-04] MEDS ORDERED: CARB200T6 PO (08:35)
[2017-05-04] MEDS ORDERED: ASPI81 PO (08:35)
[2017-05-04] MEDS ORDERED: LISI-661 PO (08:35)
[2017-05-04] MEDS: LISINOPRIL 10 MG TABLET PO SCH (08:44)
[2017-05-04] MEDS: CHOLECALCIFEROL (VIT D3) 1,000 UNITS TABLET PO SCH (08:44)
[2017-05-04] MEDS: ASPIRIN 81 MG EC TABLET PO SCH (08:44)
[2017-05-04 08:45] VITALS: BP 126/81
[2017-05-04] MEDS: NICOTINE 21 MG/24 HOUR PATCH TD SCH (08:45)
[2017-05-04] MEDS: FOLIC ACID 1 MG TABLET PO SCH (08:45)
[2017-05-04] MEDS: DIAZEPAM 10 MG TABLET PO SCH (08:45)
[2017-05-04] MEDS: THIAMINE HCL 100 MG TABLET PO SCH (08:45)
[2017-05-04] MEDS: MULTIVITAMINS WITH MINERALS, THERAPEUTIC TABLET PO SCH (08:45)
[2017-05-04] MEDS: CarBAMazepine 200 MG TABLET PO SCH (08:45)
[2017-05-04] MEDS ORDERED: NALTREXONE HCL 50 MG TABLET PO SCH (09:00)
[2017-05-05] MEDS ORDERED: DIAZEPAM 5 MG TABLET PO PRN (07:00)
[2017-05-05] MEDS ORDERED: DIAZEPAM 5 MG TABLET PO SCH (09:00)
[2017-05-06] MEDS ORDERED: DIAZEPAM 5 MG TABLET PO PRN (07:00)
== END 2017-05-04 10:50 | disposition home or self-care (01) | DRG 885 ==
LOC: B2S 18:30
PROVIDERS: ADMIT Psychiatry & Neurology Psychiatry; ATTEND Psychiatry & Neurology Psychiatry
PROC: 3E0234Z Introduction of Serum, Toxoid and Vaccine into Muscle, Percutaneous Approach (ICD-10-PCS; principal; 2017-04-29)
PROC: 3E0234Z Introduction of Serum, Toxoid and Vaccine into Muscle, Percutaneous Approach (ICD-10-PCS; 2017-04-30)
DX: F25.0 Schizoaffective disorder, bipolar type (principal); E46 Unspecified protein-calorie malnutrition; R45.851 Suicidal ideations; G40.909 Epilepsy, unspecified, not intractable, without status epilepticus; F15.20 Other stimulant dependence, uncomplicated; Z68.1 Body mass index [BMI] 19.9 or less, adult; B19.20 Unspecified viral hepatitis C without hepatic coma; E55.9 Vitamin D deficiency, unspecified; E78.5 Hyperlipidemia, unspecified; F41.9 Anxiety disorder, unspecified; G47.00 Insomnia, unspecified; I10 Essential (primary) hypertension; I25.10 Atherosclerotic heart disease of native coronary artery without angina pectoris; J44.9 Chronic obstructive pulmonary disease, unspecified; K21.9 Gastro-esophageal reflux disease without esophagitis; F10.20 Alcohol dependence, uncomplicated; F17.200 Nicotine dependence, unspecified, uncomplicated; Z88.8 Allergy status to other drugs, medicaments and biological substances; Z59.0 Homelessness; Z23 Encounter for immunization; Z71.6 Tobacco abuse counseling; Z88.5 Allergy status to narcotic agent; Z79.899 Other long term (current) drug therapy; Z91.19 Patient's noncompliance with other medical treatment and regimen
CPT/HCPCS: 80307; 82306; 83036; 84439; 84443; 90471; J3420

== ENCOUNTER 2017-05-12 18:02 | Inpatient (IN) | payer MEDICARE, MEDICAID ==
[~2017-05-12] VITALS: Ht 188 cm; Wt 60.8 kg
[~2017-05-12 18:02] MED LIST changes: +ASPI81 PO; +CARB200T6 PO; +LISI-661 PO; +NALT50TA6 PO; -QUET100T PO; +QUET200T29 PO; -VITAD1000 PO
[2017-05-12 20:28] LABS: BASOPHILS # (AUTO) 0.05 K/uL (0.00-0.20); BASOPHILS % (AUTO) 0.5 % (0.0-2.0); EOSINOPHILS % (AUTO) 1.11 % (1.0-6.0); HEMATOCRIT 40.2 % (41-53); HEMOGLOBIN 13.7 g/dL (13.5-17.5); LYMPHOCYTES # (AUTO) 2.6 K/uL (1.0-4.8); LYMPHOCYTES % (AUTO) 29.9 % (22.0-44.0); MEAN CORPUSCULAR HEMOGLOBIN 30.2 pg (26.0-34.0); MEAN CORPUSCULAR HGB CONC 34.2 G/dL (31.0-37.0); MEAN CORPUSCULAR VOLUME 88 fL (80-100); MONOCYTES # (AUTO) 0.6 K/uL (0.1-1.0); MONOCYTES % (AUTO) 6.3 % (2.0-9.0); NEUTROPHILS # (AUTO) 5.5 K/uL (1.8-7.7); NEUTROPHILS % (AUTO) 62.1 % (40.0-70.0); PLATELET COUNT (AUTO) 241 K/uL (150-450); RED BLOOD CELL COUNT(AUTO) 4.55 MIL/uL (4.50-5.90)
[2017-05-12 21:08] LABS: ANION GAP 6 mmol/L (8-16); CARBON DIOXIDE 30 mmol/L (22-29); CHLORIDE 102 mmol/L (98-107); CREATININE 0.86 mg/dL (0.60-1.30); GLOMERULAR FILTR. RATE CALC > 60 mL/min (>60); GLUCOSE,RANDOM 100 mg/dL (70-110); POTASSIUM 3.8 mmol/L (3.5-5.1); SODIUM SERUM 138 mmol/L (136-145); UREA NITROGEN, BLOOD 12 mg/dL (7-18)
[2017-05-12 21:14] LABS: ALANINE AMINOTRANSFERASE 43 U/L (12-78); ALBUMIN 3.1 g/dL (3.4-5.0); ALKALINE PHOSPHATASE 77 U/L (46-116); ASPARTATE AMINOTRANSFERASE 54 U/L (15-37); BILIRUBIN,TOTAL 0.4 mg/dL (0.1-1.0); TOTAL PROTEIN, SERUM 7.7 g/dL (6.4-8.2)
[2017-05-12 21:29] LABS: CARBAMAZEPINE (TEGRETOL) < 4.0 mcg/mL (4.0-12.0)
[2017-05-12] MEDS ORDERED: ZOLPIDEM TARTRATE 10 MG TABLET PO PRN (23:00)
[2017-05-12] MEDS ORDERED: QUEtiapine FUMARATE 100 MG TABLET PO PRN (23:00)
[2017-05-13 01:36] VITALS: BP 142/81
[2017-05-13 08:15] VITALS: BP 151/94
[2017-05-13] MEDS ORDERED: BACITRACIN 28.4 GM OINTMENT TP PRN (08:15)
[2017-05-13] MEDS ORDERED: ALBUTEROL SULFATE HFA 90 MCG/PUFF 8 GM INHALER IH PRN (08:15)
[2017-05-13] MEDS ORDERED: IBUPROFEN 600 MG TABLET PO PRN (08:15)
[2017-05-13] MEDS ORDERED: MAGNESIUM HYDROXIDE SUSPENSION 30 ML UDCUP PO PRN ×2 (08:15→09:15)
[2017-05-13] MEDS ORDERED: BENZOCAINE/MENTHOL LOZENGE MM PRN (08:15)
[2017-05-13] MEDS ORDERED: ACETAMINOPHEN 325 MG TABLET PO PRN ×2 (08:15→09:15)
[2017-05-13] MEDS ORDERED: CloNIDine HCL 0.1 MG TABLET PO PRN (08:15)
[2017-05-13] MEDS ORDERED: LOPERAMIDE HCL 2 MG CAPSULE PO PRN ×2 (08:15→09:15)
[2017-05-13] MEDS ORDERED: PETROLATUM,WHITE 71 GM JELLY TP PRN (08:15)
[2017-05-13] MEDS ORDERED: MAG HYDROX/AL HYDROX/SIMETH ES 30 ML SUSPENSION UDCUP PO PRN ×2 (08:15→09:15)
[2017-05-13] MEDS ORDERED: ONDANSETRON HCL 4 MG TABLET PO PRN (08:15)
[2017-05-13] MEDS ORDERED: LISINOPRIL 10 MG TABLET PO SCH (09:00)
[2017-05-13] MEDS ORDERED: CarBAMazepine 200 MG TABLET PO SCH (09:00)
[2017-05-13] MEDS: CarBAMazepine 200 MG TABLET PO SCH ×2 (09:15→16:14)
[2017-05-13] MEDS ORDERED: HydrOXYzine PAMOATE 50 MG CAPSULE PO PRN (09:15)
[2017-05-13] MEDS ORDERED: GuaiFENesin/D-METHORPHAN [SUGAR-FREE] 200-20MG/10 ML SYRUP UDCUP PO PRN (09:15)
[2017-05-13] MEDS: OMEPRAZOLE 20 MG CAPSULE PO SCH (09:15)
[2017-05-13] MEDS: DOCUSATE SODIUM 100 MG CAPSULE PO SCH (09:15)
[2017-05-13] MEDS ORDERED: PROMETHAZINE HCL 25 MG TABLET PO PRN (09:15)
[2017-05-13 09:38] LABS: CHOL/HDL RATIO 2.8 (4.2-7.3)
[2017-05-13 10:30] VITALS: BP 147/90
[2017-05-13] MEDS: LORazepam 2 MG TABLET PO PRN ×2 (11:46→16:14)
[2017-05-13] MEDS: THIAMINE HCL 100 MG TABLET PO SCH (16:14)
[2017-05-13 16:36] VITALS: BP 148/98
[2017-05-13 17:40] VITALS: BP 142/90
[2017-05-13] MEDS ORDERED: LISINOPRIL 10 MG TABLET PO ONE (17:45)
[2017-05-13] MEDS: QUEtiapine FUMARATE 200 MG TABLET PO SCH (20:24)
[2017-05-14] MEDS: ASPIRIN 81 MG EC TABLET PO SCH (07:11)
[2017-05-14] MEDS: FOLIC ACID 1 MG TABLET PO SCH (08:34)
[2017-05-14] MEDS: OMEPRAZOLE 20 MG CAPSULE PO SCH (08:34)
[2017-05-14] MEDS: CarBAMazepine 200 MG TABLET PO SCH ×2 (08:35→16:24)
[2017-05-14] MEDS: DOCUSATE SODIUM 100 MG CAPSULE PO SCH (08:35)
[2017-05-14] MEDS: MULTIVITAMINS WITH MINERALS, THERAPEUTIC TABLET PO SCH (08:35)
[2017-05-14] MEDS: NALTREXONE HCL 50 MG TABLET PO SCH (08:35)
[2017-05-14] MEDS: THIAMINE HCL 100 MG TABLET PO SCH ×2 (08:35→16:24)
[2017-05-14] MEDS: LISINOPRIL 10 MG TABLET PO SCH (08:35)
[2017-05-14 08:39] VITALS: BP 156/88
[2017-05-14 10:00] VITALS: BP 143/88
[2017-05-14] MEDS: LORazepam 2 MG TABLET PO PRN ×2 (10:16→16:24)
[2017-05-14 16:21] VITALS: BP 153/93
[2017-05-14 18:03] VITALS: BP 150/91
[2017-05-14] MEDS: QUEtiapine FUMARATE 200 MG TABLET PO SCH (20:22)
[2017-05-15 06:40] VITALS: BP 108/69
[2017-05-15] MEDS: ASPIRIN 81 MG EC TABLET PO SCH (06:46)
[2017-05-15 08:37] VITALS: BP 137/86
[2017-05-15] MEDS: DOCUSATE SODIUM 100 MG CAPSULE PO SCH (08:49)
[2017-05-15] MEDS: MULTIVITAMINS WITH MINERALS, THERAPEUTIC TABLET PO SCH (08:49)
[2017-05-15] MEDS: THIAMINE HCL 100 MG TABLET PO SCH ×2 (08:50→16:35)
[2017-05-15] MEDS: CHOLECALCIFEROL (VIT D3) 1,000 UNITS TABLET PO SCH (08:50)
[2017-05-15] MEDS: FOLIC ACID 1 MG TABLET PO SCH (08:50)
[2017-05-15] MEDS: NALTREXONE HCL 50 MG TABLET PO SCH (08:50)
[2017-05-15] MEDS: LISINOPRIL 10 MG TABLET PO SCH (08:50)
[2017-05-15] MEDS: CarBAMazepine 200 MG TABLET PO SCH ×2 (08:50→16:35)
[2017-05-15] MEDS: OMEPRAZOLE 20 MG CAPSULE PO SCH (08:50)
[2017-05-15 16:17] VITALS: BP 135/84
[2017-05-15] MEDS: QUEtiapine FUMARATE 200 MG TABLET PO SCH (20:41)
[2017-05-16 00:04] VITALS: BP 112/85
[2017-05-16] MEDS: LORazepam 2 MG TABLET PO PRN (00:04)
[2017-05-16] MEDS: ASPIRIN 81 MG EC TABLET PO SCH (06:39)
[2017-05-16 08:17] VITALS: BP 149/91
[2017-05-16] MEDS: NALTREXONE HCL 50 MG TABLET PO SCH (08:48)
[2017-05-16] MEDS: MULTIVITAMINS WITH MINERALS, THERAPEUTIC TABLET PO SCH (08:48)
[2017-05-16] MEDS: CarBAMazepine 200 MG TABLET PO SCH (08:48)
[2017-05-16] MEDS: THIAMINE HCL 100 MG TABLET PO SCH (08:48)
[2017-05-16] MEDS: CHOLECALCIFEROL (VIT D3) 1,000 UNITS TABLET PO SCH (08:48)
[2017-05-16] MEDS: FOLIC ACID 1 MG TABLET PO SCH (08:48)
[2017-05-16] MEDS: OMEPRAZOLE 20 MG CAPSULE PO SCH (08:48)
[2017-05-16] MEDS: DOCUSATE SODIUM 100 MG CAPSULE PO SCH (08:49)
[2017-05-16] MEDS ORDERED: LISINOPRIL 20 MG TABLET PO SCH (09:00)
[2017-05-16 10:00] VITALS: BP 132/88
[2017-05-16] MEDS ORDERED: QUET200T PO (13:48)
[2017-05-16] MEDS ORDERED: VITAD1000 PO (13:49)
[2017-05-16] MEDS ORDERED: OMEP20 PO (13:49)
[2017-05-16] MEDS ORDERED: DSS100 PO (13:49)
== END 2017-05-16 14:19 | disposition home or self-care (01) | DRG 885 ==
LOC: EMS 18:05 → B2X 23:30
PROVIDERS: ADMIT Psychiatry & Neurology Psychiatry; ATTEND Psychiatry & Neurology Psychiatry
DX: F25.9 Schizoaffective disorder, unspecified (principal); R45.851 Suicidal ideations; Z59.0 Homelessness; E78.5 Hyperlipidemia, unspecified; I10 Essential (primary) hypertension; I25.10 Atherosclerotic heart disease of native coronary artery without angina pectoris; J44.9 Chronic obstructive pulmonary disease, unspecified; K21.9 Gastro-esophageal reflux disease without esophagitis; Z87.891 Personal history of nicotine dependence; Z88.6 Allergy status to analgesic agent; Z88.8 Allergy status to other drugs, medicaments and biological substances
CPT/HCPCS: 82306; 82652; 84443; 87081; 99285; G0480

== ENCOUNTER 2017-10-21 16:54 | Inpatient (IN) | payer MEDICARE, MEDICAID ==
[~2017-10-21] VITALS: Ht 188 cm; Wt 64.4 kg
[~2017-10-21 16:54] MED LIST changes: +DSS100 PO; +OMEP20 PO; +QUET200T PO; -QUET200T29 PO; -QUET300T2 PO; +VITAD1000 PO
[2017-10-21] MEDS ORDERED: LORazepam 2 MG TABLET PO PRN ×2 (17:45→18:45)
[2017-10-21] MEDS ORDERED: HALOPERIDOL 5 MG TABLET PO PRN (17:45)
[2017-10-21] MEDS ORDERED: ZOLPIDEM TARTRATE 10 MG TABLET PO PRN (17:45)
[2017-10-21] MEDS ORDERED: CYANOCOBALAMIN 1,000 MCG/ML VIAL IM ONE (18:45)
[2017-10-21] MEDS ORDERED: GuaiFENesin/D-METHORPHAN [SUGAR-FREE] 200-20MG/10 ML SYRUP UDCUP PO PRN (18:45)
[2017-10-21] MEDS ORDERED: LOPERAMIDE HCL 2 MG CAPSULE PO PRN (18:45)
[2017-10-21] MEDS ORDERED: HydrOXYzine PAMOATE 50 MG CAPSULE PO PRN (18:45)
[2017-10-21 19:15] VITALS: BP 130/90
[2017-10-21 19:26] VITALS: BP 130/93
[2017-10-21] MEDS: CarBAMazepine 200 MG TABLET PO SCH (19:42)
[2017-10-21 20:15] VITALS: BP 134/78
[2017-10-21 21:15] VITALS: BP 138/84
[2017-10-21] MEDS ORDERED: ALBUTEROL SULFATE HFA 90 MCG/PUFF 8 GM INHALER IH PRN (21:15)
[2017-10-21] MEDS: QUEtiapine FUMARATE 200 MG TABLET PO SCH (21:32)
[2017-10-21 22:36] VITALS: BP 153/87
[2017-10-22 00:36] VITALS: BP 134/82
[2017-10-22 02:00] VITALS: BP 134/82
[2017-10-22] MEDS ORDERED: LORazepam 2 MG TABLET PO PRN (07:00)
[2017-10-22 07:44] LABS: HEMOGLOBIN A1C 5.4 % (4.5-6.2)
[2017-10-22 07:49] LABS: EOSINOPHILS % (AUTO) 2.5 % (1.0-6.0); HEMATOCRIT 38.2 % (41-53); HEMOGLOBIN 13.4 g/dL (13.5-17.5); LYMPHOCYTES # (AUTO) 2.3 K/uL (1.0-4.8); LYMPHOCYTES % (AUTO) 36.7 % (22.0-44.0); MEAN CORPUSCULAR HEMOGLOBIN 31.2 pg (26.0-34.0); MEAN CORPUSCULAR VOLUME 89 fL (80-100); MONOCYTES # (AUTO) 0.7 K/uL (0.1-1.0); MONOCYTES % (AUTO) 10.3 % (2.0-9.0); NEUTROPHILS # (AUTO) 3.2 K/uL (1.8-7.7); NEUTROPHILS % (AUTO) 49.5 % (40.0-70.0); PLATELET COUNT (AUTO) 150 K/uL (150-450); RED BLOOD CELL COUNT(AUTO) 4.28 MIL/uL (4.50-5.90); RED CELL DISTRIBUTION WIDTH 13.2 % (11.5-14.5)
[2017-10-22 08:00] LABS: ALANINE AMINOTRANSFERASE 254 U/L (12-78); ALKALINE PHOSPHATASE 85 U/L (46-116); ANION GAP 4 mmol/L (8-16); ASPARTATE AMINOTRANSFERASE 238 U/L (15-37); BILIRUBIN,TOTAL 0.3 mg/dL (0.1-1.0); CALCIUM, TOTAL 8.2 mg/dL (8.8-10.5); CARBON DIOXIDE 29 mmol/L (22-29); CHLORIDE 105 mmol/L (98-107); CHOL/HDL RATIO 3.2 (4.2-7.3); CHOLESTEROL 143 mg/dL (131-200); CREATININE 0.72 mg/dL (0.60-1.30); GLOMERULAR FILTR. RATE CALC > 60 mL/min (>60); GLUCOSE,RANDOM 83 mg/dL (70-110); HDL CHOLESTEROL 45 mg/dL (40-60); LDL CHOL (CALC.) 88 mg/dL (0-130); POTASSIUM 4.1 mmol/L (3.5-5.1); SODIUM SERUM 138 mmol/L (136-145); THYROID STIMULATING HORMONE 1.47 uIU/mL (0.36-3.74); TRIGLYCERIDES 48 mg/dL (15-150); UREA NITROGEN, BLOOD 21 mg/dL (7-18)
[2017-10-22] MEDS: DOCUSATE SODIUM 100 MG CAPSULE PO SCH (08:12)
[2017-10-22] MEDS: ASPIRIN 81 MG CHEWABLE TABLET PO SCH (08:12)
[2017-10-22] MEDS: CarBAMazepine 200 MG TABLET PO SCH ×2 (08:12→16:47)
[2017-10-22] MEDS: LISINOPRIL 20 MG TABLET PO SCH (08:12)
[2017-10-22] MEDS: FOLIC ACID 1 MG TABLET PO SCH (08:12)
[2017-10-22] MEDS: MULTIVITAMINS WITH MINERALS, THERAPEUTIC TABLET PO SCH (08:12)
[2017-10-22] MEDS: NALTREXONE HCL 50 MG TABLET PO SCH (08:12)
[2017-10-22] MEDS: LORazepam 2 MG TABLET PO SCH ×4 (08:12→20:40)
[2017-10-22] MEDS: NICOTINE 21 MG/24 HOUR PATCH TD SCH (08:13)
[2017-10-22] MEDS: CHOLECALCIFEROL (VIT D3) 1,000 UNITS TABLET PO SCH (08:13)
[2017-10-22] MEDS: THIAMINE HCL 100 MG TABLET PO SCH ×2 (08:13→16:48)
[2017-10-22] MEDS: OMEPRAZOLE 20 MG CAPSULE PO SCH (08:13)
[2017-10-22 08:18] VITALS: BP 135/89
[2017-10-22 16:08] VITALS: BP 139/85
[2017-10-22 18:15] VITALS: BP 139/85
[2017-10-22] MEDS: QUEtiapine FUMARATE 200 MG TABLET PO SCH (20:40)
[2017-10-23 06:00] VITALS: BP 129/81
[2017-10-23 06:26] VITALS: BP 129/81
[2017-10-23 08:31] VITALS: BP 110/69
[2017-10-23] MEDS: DOCUSATE SODIUM 100 MG CAPSULE PO SCH (08:54)
[2017-10-23] MEDS: NALTREXONE HCL 50 MG TABLET PO SCH (08:54)
[2017-10-23] MEDS: CarBAMazepine 200 MG TABLET PO SCH ×2 (08:55→16:38)
[2017-10-23] MEDS: THIAMINE HCL 100 MG TABLET PO SCH ×2 (08:55→16:38)
[2017-10-23] MEDS: OMEPRAZOLE 20 MG CAPSULE PO SCH (08:55)
[2017-10-23] MEDS: CHOLECALCIFEROL (VIT D3) 1,000 UNITS TABLET PO SCH (08:55)
[2017-10-23] MEDS: MULTIVITAMINS WITH MINERALS, THERAPEUTIC TABLET PO SCH (08:55)
[2017-10-23] MEDS: FOLIC ACID 1 MG TABLET PO SCH (08:55)
[2017-10-23] MEDS: ASPIRIN 81 MG CHEWABLE TABLET PO SCH (08:55)
[2017-10-23] MEDS: LISINOPRIL 20 MG TABLET PO SCH (08:55)
[2017-10-23] MEDS: NICOTINE 21 MG/24 HOUR PATCH TD SCH (08:55)
[2017-10-23] MEDS: LORazepam 2 MG TABLET PO SCH ×4 (09:00→20:23)
[2017-10-23 16:08] VITALS: BP 138/86
[2017-10-23] MEDS: QUEtiapine FUMARATE 200 MG TABLET PO SCH (20:23)
[2017-10-24 01:30] VITALS: BP 127/78
[2017-10-24] MEDS ORDERED: LORazepam 1 MG TABLET PO PRN (07:00)
[2017-10-24 08:22] VITALS: BP 120/76
[2017-10-24] MEDS: DOCUSATE SODIUM 100 MG CAPSULE PO SCH (08:25)
[2017-10-24] MEDS: CarBAMazepine 200 MG TABLET PO SCH ×2 (08:25→16:20)
[2017-10-24] MEDS: LORazepam 1 MG TABLET PO SCH ×2 (08:25→12:27)
[2017-10-24] MEDS: OMEPRAZOLE 20 MG CAPSULE PO SCH (08:25)
[2017-10-24] MEDS: NALTREXONE HCL 50 MG TABLET PO SCH (08:25)
[2017-10-24] MEDS: THIAMINE HCL 100 MG TABLET PO SCH ×2 (08:25→16:20)
[2017-10-24] MEDS: LISINOPRIL 20 MG TABLET PO SCH (08:25)
[2017-10-24] MEDS: ASPIRIN 81 MG CHEWABLE TABLET PO SCH (08:25)
[2017-10-24] MEDS: CHOLECALCIFEROL (VIT D3) 1,000 UNITS TABLET PO SCH (08:26)
[2017-10-24] MEDS: NICOTINE 21 MG/24 HOUR PATCH TD SCH (08:26)
[2017-10-24] MEDS: MULTIVITAMINS WITH MINERALS, THERAPEUTIC TABLET PO SCH (08:26)
[2017-10-24] MEDS: FOLIC ACID 1 MG TABLET PO SCH (08:26)
[2017-10-24] MEDS ORDERED: MULT1TAB70 PO (17:08)
[2017-10-24] MEDS ORDERED: FOLI1TAB15 PO (17:08)
[2017-10-24] MEDS ORDERED: THIA100T13 PO (17:08)
[2017-10-25] MEDS ORDERED: LORazepam 1 MG TABLET PO PRN (07:00)
== END 2017-10-24 17:30 | disposition home or self-care (01) | DRG 885 ==
LOC: B2X 17:48
PROVIDERS: ADMIT Psychiatry & Neurology Psychiatry; ATTEND Psychiatry & Neurology Psychiatry
DX: F25.0 Schizoaffective disorder, bipolar type (principal); R45.851 Suicidal ideations; F15.20 Other stimulant dependence, uncomplicated; E78.5 Hyperlipidemia, unspecified; E55.9 Vitamin D deficiency, unspecified; B18.2 Chronic viral hepatitis C; F41.9 Anxiety disorder, unspecified; G47.00 Insomnia, unspecified; I10 Essential (primary) hypertension; I25.10 Atherosclerotic heart disease of native coronary artery without angina pectoris; K21.9 Gastro-esophageal reflux disease without esophagitis; J44.9 Chronic obstructive pulmonary disease, unspecified; F10.20 Alcohol dependence, uncomplicated; F19.10 Other psychoactive substance abuse, uncomplicated; F17.200 Nicotine dependence, unspecified, uncomplicated; Z59.0 Homelessness; Z79.82 Long term (current) use of aspirin; Z79.899 Other long term (current) drug therapy; Z79.51 Long term (current) use of inhaled steroids; Z88.8 Allergy status to other drugs, medicaments and biological substances; Z91.5 Personal history of self-harm; Z71.6 Tobacco abuse counseling; Z71.51 Drug abuse counseling and surveillance of drug abuser
CPT/HCPCS: 83036; 84439; 84443; J3420

== ENCOUNTER 2018-02-08 17:00 | Emergency (ER) | payer MEDICARE, MEDICAID ==
[~2018-02-08 17:00] MED LIST changes: +FOLI1TAB15 PO; +MULT1TAB70 PO; +THIA100T13 PO
== END 2018-02-08 17:33 | disposition left against medical advice (07) ==
LOC: EMS 17:02
DX: Z76.0 Encounter for issue of repeat prescription (principal); Z53.21 Procedure and treatment not carried out due to patient leaving prior to being seen by health care provider

== ENCOUNTER 2019-09-19 14:12 | Inpatient (IN) | payer MEDICARE, MEDICAID ==
[~2019-09-19] VITALS: Ht 188 cm; Wt 61.3 kg
[~2019-09-19 14:12] MED LIST changes: +ASPI-728 PO; -ASPI81 PO; +CHOL100018 PO; -VITAD1000 PO
[2019-09-19 15:24] LABS: BASOPHILS % (AUTO) 0.8 % (0.0-2.0); EOSINOPHILS % (AUTO) 1.8 % (1.0-6.0); HEMATOCRIT 40.3 % (41-53); HEMOGLOBIN 13.6 g/dL (13.5-17.5); MEAN CORPUSCULAR HEMOGLOBIN 30.2 pg (26.0-34.0); MEAN CORPUSCULAR HGB CONC 33.8 G/dL (31.0-37.0); MEAN CORPUSCULAR VOLUME 89 fL (80-100); MONOCYTES # (AUTO) 0.6 K/uL (0.1-1.0); MONOCYTES % (AUTO) 8.4 % (2.0-9.0); NEUTROPHILS # (AUTO) 4.5 K/uL (1.8-7.7); PLATELET COUNT (AUTO) 211 K/uL (150-450); RED BLOOD CELL COUNT(AUTO) 4.51 MIL/uL (4.50-5.90); RED CELL DISTRIBUTION WIDTH 13.3 % (11.5-14.5)
[2019-09-19 15:39] LABS: ALANINE AMINOTRANSFERASE 22 U/L (12-78); ALBUMIN 3.5 g/dL (3.4-5.0); ALKALINE PHOSPHATASE 77 U/L (46-116); ANION GAP 10 mmol/L (8-16); ASPARTATE AMINOTRANSFERASE 22 U/L (15-37); BILIRUBIN,TOTAL 0.2 mg/dL (0.1-1.0); CALCIUM, TOTAL 8.7 mg/dL (8.8-10.5); CARBON DIOXIDE 24 mmol/L (22-29); CHLORIDE 100 mmol/L (98-107); GLOMERULAR FILTR. RATE CALC > 60 mL/min (>60); GLUCOSE,RANDOM 141 mg/dL (70-110); SODIUM SERUM 134 mmol/L (136-145); TOTAL PROTEIN, SERUM 7.1 g/dL (6.4-8.2); UREA NITROGEN, BLOOD 8 mg/dL (7-18)
[2019-09-19 15:55] LABS: POTASSIUM 2.9 mmol/L (3.5-5.1)
[2019-09-19] MEDS ORDERED: POTASSIUM CHLORIDE 20 MEQ ER TABLET PO ONE ×2 (16:00→21:45)
[2019-09-19 16:16] LABS: AMPHET/METH SCREEN,URINE POSITIVE (NEGATIVE); BARBITURATE SCREEN, URINE NEGATIVE (NEGATIVE); BENZODIAZEPINES SCREEN,URINE NEGATIVE (NEGATIVE); CANNABINOID SCREEN,URINE NEGATIVE (NEGATIVE); COCAINE SCREEN,URINE NEGATIVE (NEGATIVE); METHADONE SCREEN, URINE NEGATIVE (NEGATIVE); OPIATE SCREEN,URINE NEGATIVE (NEGATIVE)
[2019-09-19 16:25] LABS: PHENCYCLIDINE SCREEN,URINE NEGATIVE (NEGATIVE)
[2019-09-19] MEDS ORDERED: LORazepam 1 MG TABLET PO ONE (17:30)
[2019-09-19] MEDS ORDERED: ZOLPIDEM TARTRATE 10 MG TABLET PO PRN (19:15)
[2019-09-19] MEDS ORDERED: LORazepam 2 MG TABLET PO PRN (19:15)
[2019-09-19] MEDS ORDERED: HALOPERIDOL 5 MG TABLET PO PRN (19:15)
[2019-09-19 21:25] VITALS: BP 143/99
[2019-09-20 08:43] LABS: CHOL/HDL RATIO 2.4 (4.2-7.3); POTASSIUM 4.1 mmol/L (3.5-5.1)
[2019-09-20] MEDS ORDERED: AmLODIPine BESYLATE 2.5 MG TABLET PO SCH (09:00)
[2019-09-20] MEDS: NICOTINE 14 MG/24 HOUR PATCH TD SCH (09:00)
[2019-09-20 11:25] VITALS: BP 159/90
[2019-09-20] MEDS ORDERED: CloNIDine HCL 0.1 MG TABLET PO PRN (11:45)
[2019-09-20] MEDS ORDERED: ALBUTEROL SULFATE HFA 90 MCG/PUFF 8 GM INHALER IH PRN (11:45)
[2019-09-20] MEDS ORDERED: PETROLATUM,WHITE 28 GM JELLY TP PRN (11:45)
[2019-09-20] MEDS ORDERED: MAGNESIUM HYDROXIDE SUSPENSION 30 ML UDCUP PO PRN (11:45)
[2019-09-20] MEDS ORDERED: IBUPROFEN 400 MG TABLET PO PRN (11:45)
[2019-09-20] MEDS ORDERED: MAG HYDROX/AL HYDROX/SIMETH ES 30 ML SUSPENSION UDCUP PO PRN (11:45)
[2019-09-20] MEDS ORDERED: ONDANSETRON HCL 4 MG TABLET PO PRN (11:45)
[2019-09-20] MEDS ORDERED: GuaiFENesin/D-METHORPHAN [SUGAR-FREE] 200-20MG/10 ML SYRUP UDCUP PO PRN (11:45)
[2019-09-20] MEDS ORDERED: DOCUSATE SODIUM 100 MG CAPSULE PO PRN (11:45)
[2019-09-20] MEDS ORDERED: ACETAMINOPHEN 325 MG TABLET PO PRN (11:45)
[2019-09-20] MEDS ORDERED: NICOTINE 14 MG/24 HOUR PATCH TD PRN (11:45)
[2019-09-20] MEDS ORDERED: LOPERAMIDE HCL 2 MG CAPSULE PO PRN (11:45)
[2019-09-20] MEDS ORDERED: DOCU-275 PO (15:28)
[2019-09-20] MEDS ORDERED: CHOL100018 PO (15:28)
[2019-09-20] MEDS ORDERED: FOLI-130 PO (15:28)
[2019-09-20] MEDS ORDERED: THIA100T67 PO (15:28)
[2019-09-20] MEDS ORDERED: LISI-662 PO (15:31)
[2019-09-20 17:10] VITALS: BP 146/90
[2019-09-20] MEDS: QUEtiapine FUMARATE 200 MG TABLET PO SCH (21:47)
[2019-09-21] MEDS: NICOTINE 14 MG/24 HOUR PATCH TD SCH ×2 (09:00→09:33)
[2019-09-21] MEDS: FOLIC ACID 1 MG TABLET PO SCH (09:32)
[2019-09-21] MEDS: ASPIRIN 81 MG CHEWABLE TABLET PO SCH (09:32)
[2019-09-21] MEDS: OMEPRAZOLE 20 MG CAPSULE PO SCH (09:32)
[2019-09-21] MEDS: LISINOPRIL 20 MG TABLET PO SCH (09:33)
[2019-09-21] MEDS: CHOLECALCIFEROL (VIT D3) 1,000 UNITS [25 MCG] TABLET PO SCH (09:33)
[2019-09-21 10:51] VITALS: BP 111/76
[2019-09-21] MEDS ORDERED: ACETAMINOPHEN 325 MG TABLET PO PRN (17:30)
[2019-09-21 17:41] VITALS: BP 153/85
[2019-09-21] MEDS: CEPHALEXIN MONOHYDRATE 500 MG CAPSULE PO SCH (17:53)
[2019-09-21 19:20] LABS: APPEARANCE,URINE CLOUDY (CLEAR); BILIRUBIN,URINE NEGATIVE (NEGATIVE); GLUCOSE, URINE (UA) NEGATIVE (NEGATIVE); KETONES,URINE NEGATIVE (NEGATIVE); LEUKOCYTE ESTERASE ,URINE LARGE (NEGATIVE); NITRATE,URINE POSITIVE (NEGATIVE); OCCULT BLOOD,URINE MODERATE (NEGATIVE); PH,URINE 6.5 (5.0-8.0); PROTEIN,URINE POS 1+ (NEGATIVE)
[2019-09-21 19:55] LABS: BACTERIA,URINE Many /HPF (None Seen); SQUAMOUS EPITHELIAL CELL,UR Moderate /LPF (None Seen); WBC,URINE 51-100 /HPF (0-5); YEAST,URINE None Seen /HPF (None Seen)
[2019-09-21] MEDS: QUEtiapine FUMARATE 200 MG TABLET PO SCH (20:43)
[2019-09-22] MEDS: NICOTINE 14 MG/24 HOUR PATCH TD SCH (09:00)
[2019-09-22] MEDS: LISINOPRIL 20 MG TABLET PO SCH (09:00)
[2019-09-22] MEDS: FOLIC ACID 1 MG TABLET PO SCH (09:16)
[2019-09-22] MEDS: ASPIRIN 81 MG CHEWABLE TABLET PO SCH (09:16)
[2019-09-22] MEDS: CEPHALEXIN MONOHYDRATE 500 MG CAPSULE PO SCH ×3 (09:16→16:04)
[2019-09-22] MEDS: OMEPRAZOLE 20 MG CAPSULE PO SCH (09:16)
[2019-09-22] MEDS: CHOLECALCIFEROL (VIT D3) 1,000 UNITS [25 MCG] TABLET PO SCH (09:16)
[2019-09-22 09:39] VITALS: BP 101/47
[2019-09-22 16:33] VITALS: BP 136/93
[2019-09-22] MEDS: QUEtiapine FUMARATE 200 MG TABLET PO SCH (20:23)
[2019-09-23] MEDS: CEPHALEXIN MONOHYDRATE 500 MG CAPSULE PO SCH ×3 (08:34→17:04)
[2019-09-23] MEDS: FOLIC ACID 1 MG TABLET PO SCH (08:35)
[2019-09-23] MEDS: ASPIRIN 81 MG CHEWABLE TABLET PO SCH (08:35)
[2019-09-23] MEDS: LISINOPRIL 20 MG TABLET PO SCH (08:35)
[2019-09-23] MEDS: OMEPRAZOLE 20 MG CAPSULE PO SCH (08:35)
[2019-09-23] MEDS: CHOLECALCIFEROL (VIT D3) 1,000 UNITS [25 MCG] TABLET PO SCH (08:36)
[2019-09-23] MEDS: NICOTINE 14 MG/24 HOUR PATCH TD SCH (08:38)
[2019-09-23 10:13] VITALS: BP 114/71
[2019-09-23] MEDS ORDERED: OMEP20 PO (16:55)
[2019-09-23] MEDS ORDERED: CEPH-582 PO ×2 (16:55→16:56)
[2019-09-24] MEDS ORDERED: MULTIVITAMINS WITH MINERALS, THERAPEUTIC TABLET PO SCH (09:00)
== END 2019-09-23 17:20 | disposition home or self-care (01) | DRG 885 ==
LOC: EMS 14:23 → 3EX 19:00
PROVIDERS: ADMIT Psychiatry & Neurology Child & Adolescent Psychiatry; ATTEND Psychiatry & Neurology Child & Adolescent Psychiatry
DX: F25.1 Schizoaffective disorder, depressive type (principal); R45.851 Suicidal ideations; N39.0 Urinary tract infection, site not specified; E55.9 Vitamin D deficiency, unspecified; E78.5 Hyperlipidemia, unspecified; E87.6 Hypokalemia; F31.9 Bipolar disorder, unspecified; G40.909 Epilepsy, unspecified, not intractable, without status epilepticus; I10 Essential (primary) hypertension; F17.210 Nicotine dependence, cigarettes, uncomplicated; F10.20 Alcohol dependence, uncomplicated; F19.10 Other psychoactive substance abuse, uncomplicated; J44.9 Chronic obstructive pulmonary disease, unspecified; K21.9 Gastro-esophageal reflux disease without esophagitis; Y90.2 Blood alcohol level of 40-59 mg/100 ml; F41.9 Anxiety disorder, unspecified; M19.90 Unspecified osteoarthritis, unspecified site; Z59.0 Homelessness; Z88.8 Allergy status to other drugs, medicaments and biological substances; Z79.899 Other long term (current) drug therapy; Z71.51 Drug abuse counseling and surveillance of drug abuser; Z71.41 Alcohol abuse counseling and surveillance of alcoholic
CPT/HCPCS: 83036; 84132; 87086; G0378; G0480

== ENCOUNTER 2019-11-22 17:31 | Inpatient (IN) | payer MEDICARE, MEDICAID ==
[~2019-11-22] VITALS: Ht 188 cm; Wt 61.8 kg
[~2019-11-22 17:31] MED LIST changes: -ASPI-728 PO; -CARB200T6 PO; +CEPH-582 PO; -DSS100 PO; -FOLI1TAB15 PO; -LISI-661 PO; +LISI-662 PO; -MULT1TAB70 PO; -NALT50TA6 PO; -THIA100T13 PO
[2019-11-22] MEDS ORDERED: LORazepam 2 MG TABLET PO PRN (19:15)
[2019-11-22] MEDS ORDERED: ZOLPIDEM TARTRATE 10 MG TABLET PO PRN (19:15)
[2019-11-22] MEDS ORDERED: HALOPERIDOL 5 MG TABLET PO PRN (19:15)
[2019-11-22 19:25] VITALS: BP 162/103
[2019-11-22] MEDS ORDERED: QUET300T2 PO (20:37)
[2019-11-22] MEDS ORDERED: -PHARMACY VACCINE NOTE- MISC ONE (23:15)
[2019-11-23 07:03] VITALS: BP 142/88
[2019-11-23 08:02] VITALS: BP 158/110
[2019-11-23] MEDS ORDERED: PETROLATUM,WHITE 28 GM JELLY TP PRN (08:15)
[2019-11-23] MEDS ORDERED: DOCUSATE SODIUM 100 MG CAPSULE PO PRN (08:15)
[2019-11-23] MEDS ORDERED: MAGNESIUM HYDROXIDE SUSPENSION 30 ML UDCUP PO PRN (08:15)
[2019-11-23] MEDS ORDERED: CloNIDine HCL 0.1 MG TABLET PO PRN (08:15)
[2019-11-23] MEDS ORDERED: ALBUTEROL SULFATE HFA 90 MCG/PUFF 8 GM INHALER IH PRN (08:15)
[2019-11-23] MEDS ORDERED: ACETAMINOPHEN 325 MG TABLET PO PRN (08:15)
[2019-11-23] MEDS ORDERED: IBUPROFEN 400 MG TABLET PO PRN (08:15)
[2019-11-23] MEDS ORDERED: MAG HYDROX/AL HYDROX/SIMETH ES 30 ML SUSPENSION UDCUP PO PRN (08:15)
[2019-11-23] MEDS ORDERED: LOPERAMIDE HCL 2 MG CAPSULE PO PRN (08:15)
[2019-11-23] MEDS ORDERED: NICOTINE 14 MG/24 HOUR PATCH TD PRN (08:15)
[2019-11-23] MEDS ORDERED: ONDANSETRON HCL 4 MG TABLET PO PRN (08:15)
[2019-11-23] MEDS ORDERED: GuaiFENesin/D-METHORPHAN [SUGAR-FREE] 200-20MG/10 ML SYRUP UDCUP PO PRN (08:15)
[2019-11-23] MEDS: ASPIRIN 81 MG CHEWABLE TABLET PO SCH (08:57)
[2019-11-23] MEDS: LISINOPRIL 20 MG TABLET PO SCH (08:57)
[2019-11-23] MEDS: OMEPRAZOLE 20 MG CAPSULE PO SCH (08:57)
[2019-11-23] MEDS: AmLODIPine BESYLATE 2.5 MG TABLET PO SCH (08:57)
[2019-11-23 12:30] VITALS: BP 140/90
[2019-11-23 16:54] VITALS: BP 112/64
[2019-11-23] MEDS: QUEtiapine FUMARATE 300 MG TABLET PO SCH (21:00)
[2019-11-24 06:56] VITALS: BP 132/94
[2019-11-24 07:58] LABS: BASOPHILS % (AUTO) 0.9 % (0.0-2.0); EOSINOPHILS % (AUTO) 1.8 % (1.0-6.0); HEMATOCRIT 43.6 % (41-53); HEMOGLOBIN 14.8 g/dL (13.5-17.5); LYMPHOCYTES # (AUTO) 1.6 K/uL (1.0-4.8); LYMPHOCYTES % (AUTO) 28.9 % (22.0-44.0); MEAN CORPUSCULAR HEMOGLOBIN 30.2 pg (26.0-34.0); MEAN CORPUSCULAR VOLUME 89 fL (80-100); MONOCYTES # (AUTO) 0.5 K/uL (0.1-1.0); MONOCYTES % (AUTO) 9.3 % (2.0-9.0); NEUTROPHILS # (AUTO) 3.3 K/uL (1.8-7.7); NEUTROPHILS % (AUTO) 59.1 % (40.0-70.0); PLATELET COUNT (AUTO) 212 K/uL (150-450); RED BLOOD CELL COUNT(AUTO) 4.91 MIL/uL (4.50-5.90); RED CELL DISTRIBUTION WIDTH 14.3 % (11.5-14.5)
[2019-11-24 08:16] LABS: ALANINE AMINOTRANSFERASE 30 U/L (12-78); ALBUMIN 3.4 g/dL (3.4-5.0); ALKALINE PHOSPHATASE 69 U/L (46-116); ANION GAP 6 mmol/L (8-16); ASPARTATE AMINOTRANSFERASE 36 U/L (15-37); BILIRUBIN,TOTAL 0.2 mg/dL (0.1-1.0); CALCIUM, TOTAL 8.9 mg/dL (8.8-10.5); CARBON DIOXIDE 30 mmol/L (22-29); CHLORIDE 103 mmol/L (98-107); CHOL/HDL RATIO 3.6 (4.2-7.3); CHOLESTEROL 158 mg/dL (131-200); CREATININE 0.71 mg/dL (0.60-1.30); GLOMERULAR FILTR. RATE CALC > 60 mL/min (>60); GLUCOSE,RANDOM 104 mg/dL (70-110); HDL CHOLESTEROL 44 mg/dL (40-60); LDL CHOL (CALC.) 95 mg/dL (0-130); POTASSIUM 3.8 mmol/L (3.5-5.1); SODIUM SERUM 139 mmol/L (136-145); TOTAL PROTEIN, SERUM 8.2 g/dL (6.4-8.2); TRIGLYCERIDES 95 mg/dL (15-150); UREA NITROGEN, BLOOD 22 mg/dL (7-18)
[2019-11-24 08:36] LABS: THYROID STIMULATING HORMONE 0.91 uIU/mL (0.36-3.74)
[2019-11-24] MEDS: OMEPRAZOLE 20 MG CAPSULE PO SCH (08:59)
[2019-11-24] MEDS: ASPIRIN 81 MG CHEWABLE TABLET PO SCH (08:59)
[2019-11-24] MEDS: LISINOPRIL 20 MG TABLET PO SCH (08:59)
[2019-11-24] MEDS: AmLODIPine BESYLATE 2.5 MG TABLET PO SCH (08:59)
[2019-11-24 09:17] VITALS: BP 144/87
[2019-11-24 17:29] VITALS: BP 166/100
[2019-11-24] MEDS: QUEtiapine FUMARATE 300 MG TABLET PO SCH (20:26)
[2019-11-25 06:48] VITALS: BP 126/92
[2019-11-25 08:21] VITALS: BP 104/64
[2019-11-25 08:45] VITALS: BP 122/72
[2019-11-25] MEDS: LISINOPRIL 20 MG TABLET PO SCH (08:46)
[2019-11-25] MEDS: ASPIRIN 81 MG CHEWABLE TABLET PO SCH (08:47)
[2019-11-25] MEDS: AmLODIPine BESYLATE 2.5 MG TABLET PO SCH (08:47)
[2019-11-25] MEDS: OMEPRAZOLE 20 MG CAPSULE PO SCH (08:47)
[2019-11-25 16:15] VITALS: BP 140/89
[2019-11-25] MEDS: QUEtiapine FUMARATE 300 MG TABLET PO SCH (20:28)
[2019-11-26 05:41] VITALS: BP 124/88
[2019-11-26 08:26] VITALS: BP 132/77
[2019-11-26] MEDS: LISINOPRIL 20 MG TABLET PO SCH (09:34)
[2019-11-26] MEDS: ASPIRIN 81 MG CHEWABLE TABLET PO SCH (09:35)
[2019-11-26] MEDS: OMEPRAZOLE 20 MG CAPSULE PO SCH (09:35)
[2019-11-26] MEDS: AmLODIPine BESYLATE 2.5 MG TABLET PO SCH (09:36)
[2019-11-26 16:14] VITALS: BP 130/90
[2019-11-26] MEDS: QUEtiapine FUMARATE 300 MG TABLET PO SCH (20:31)
[2019-11-27 05:32] VITALS: BP 128/82
[2019-11-27 08:10] VITALS: BP 108/73
[2019-11-27] MEDS: OMEPRAZOLE 20 MG CAPSULE PO SCH (08:39)
[2019-11-27] MEDS: AmLODIPine BESYLATE 2.5 MG TABLET PO SCH (08:39)
[2019-11-27] MEDS: LISINOPRIL 20 MG TABLET PO SCH (08:39)
[2019-11-27] MEDS: ASPIRIN 81 MG CHEWABLE TABLET PO SCH (08:40)
[2019-11-27 16:00] VITALS: BP 115/74
[2019-11-27] MEDS: QUEtiapine FUMARATE 300 MG TABLET PO SCH (20:42)
[2019-11-28 00:37] VITALS: BP 109/63
[2019-11-28 08:35] VITALS: BP 124/71
[2019-11-28] MEDS: THIAMINE 100 MG TABLET PO SCH (08:54)
[2019-11-28] MEDS: ASPIRIN 81 MG CHEWABLE TABLET PO SCH (08:55)
[2019-11-28] MEDS: LISINOPRIL 20 MG TABLET PO SCH (08:55)
[2019-11-28] MEDS: OMEPRAZOLE 20 MG CAPSULE PO SCH (08:55)
[2019-11-28] MEDS: MULTIVITAMINS WITH MINERALS, THERAPEUTIC TABLET PO SCH (08:55)
[2019-11-28] MEDS: AmLODIPine BESYLATE 2.5 MG TABLET PO SCH (08:55)
[2019-11-28 16:29] VITALS: BP 121/69
[2019-11-28] MEDS: QUEtiapine FUMARATE 300 MG TABLET PO SCH (20:43)
[2019-11-29 01:46] VITALS: BP 111/66
[2019-11-29 09:28] VITALS: BP 119/72
[2019-11-29] MEDS: OMEPRAZOLE 20 MG CAPSULE PO SCH (09:31)
[2019-11-29] MEDS: MULTIVITAMINS WITH MINERALS, THERAPEUTIC TABLET PO SCH (09:31)
[2019-11-29] MEDS: LISINOPRIL 20 MG TABLET PO SCH (09:31)
[2019-11-29] MEDS: ASPIRIN 81 MG CHEWABLE TABLET PO SCH (09:31)
[2019-11-29] MEDS: THIAMINE 100 MG TABLET PO SCH (09:31)
[2019-11-29] MEDS: AmLODIPine BESYLATE 2.5 MG TABLET PO SCH (09:32)
[2019-11-29] MEDS ORDERED: ASPI-728 PO (12:28)
[2019-11-29] MEDS ORDERED: LISI-662 PO (12:28)
[2019-11-29] MEDS ORDERED: AMLO2.5T96 PO (12:28)
== END 2019-11-29 13:30 | disposition home or self-care (01) | DRG 885 ==
LOC: B2X 19:30
DX: F25.1 Schizoaffective disorder, depressive type (principal); B18.2 Chronic viral hepatitis C; R45.851 Suicidal ideations; F15.90 Other stimulant use, unspecified, uncomplicated; I10 Essential (primary) hypertension; J44.9 Chronic obstructive pulmonary disease, unspecified; K21.9 Gastro-esophageal reflux disease without esophagitis; E78.5 Hyperlipidemia, unspecified; F10.10 Alcohol abuse, uncomplicated; F19.10 Other psychoactive substance abuse, uncomplicated; I25.10 Atherosclerotic heart disease of native coronary artery without angina pectoris; Z59.0 Homelessness; Z91.5 Personal history of self-harm; Z88.8 Allergy status to other drugs, medicaments and biological substances; Z79.899 Other long term (current) drug therapy
CPT/HCPCS: 84443

== ENCOUNTER 2020-05-01 18:54 | Inpatient (IN) | payer MEDICARE, MEDICAID ==
[~2020-05-01] VITALS: Ht 175.3 cm; Wt 67.2 kg
[~2020-05-01 18:54] MED LIST changes: +AMLO2.5T96 PO; +ASPI-728 PO; -CEPH-582 PO; -CHOL100018 PO; +GABA-1181 PO; -LISI-662 PO; +LISI10TA7 PO; +NALT50TA PO; +OMEG-135 PO; -OMEP20 PO; -QUET200T PO; +QUET200T29 PO
[2020-05-01 21:22] LABS: BASOPHILS % (AUTO) 1.1 % (0.0-2.0); EOSINOPHILS % (AUTO) 1.9 % (1.0-6.0); HEMATOCRIT 37.5 % (41-53); HEMOGLOBIN 12.7 g/dL (13.5-17.5); LYMPHOCYTES # (AUTO) 1.9 K/uL (1.0-4.8); LYMPHOCYTES % (AUTO) 30.3 % (22.0-44.0); MEAN CORPUSCULAR HEMOGLOBIN 30.9 pg (26.0-34.0); MEAN CORPUSCULAR HGB CONC 33.9 G/dL (31.0-37.0); MEAN CORPUSCULAR VOLUME 91 fL (80-100); MONOCYTES # (AUTO) 0.7 K/uL (0.1-1.0); NEUTROPHILS # (AUTO) 3.5 K/uL (1.8-7.7); NEUTROPHILS % (AUTO) 55.7 % (40.0-70.0); PLATELET COUNT (AUTO) 177 K/uL (150-450); RED BLOOD CELL COUNT(AUTO) 4.11 MIL/uL (4.50-5.90); RED CELL DISTRIBUTION WIDTH 13.3 % (11.5-14.5)
[2020-05-01 21:52] LABS: ANION GAP 9 mmol/L (8-16); CALCIUM, TOTAL 8.3 mg/dL (8.8-10.5); CARBON DIOXIDE 27 mmol/L (22-29); CHLORIDE 101 mmol/L (98-107); CREATININE 1.11 mg/dL (0.60-1.30); GLOMERULAR FILTR. RATE CALC > 60 mL/min (>60); GLUCOSE,RANDOM 83 mg/dL (70-110); POTASSIUM 3.9 mmol/L (3.5-5.1); SODIUM SERUM 137 mmol/L (136-145); UREA NITROGEN, BLOOD 24 mg/dL (7-18)
[2020-05-01 21:58] LABS: ALANINE AMINOTRANSFERASE 81 U/L (12-78); ALBUMIN 3.5 g/dL (3.4-5.0); ALKALINE PHOSPHATASE 77 U/L (46-116); ASPARTATE AMINOTRANSFERASE 69 U/L (15-37); BILIRUBIN,TOTAL 0.4 mg/dL (0.1-1.0); TOTAL PROTEIN, SERUM 7.3 g/dL (6.4-8.2)
[2020-05-01 22:41] LABS: COVID AG,FIA SOURCE NASOPHARYNGEAL
[2020-05-02] MEDS ORDERED: ChlorproMAZINE HCL 100 MG TABLET PO PRN ×3 (01:15→11:15)
[2020-05-02] MEDS ORDERED: ZOLPIDEM TARTRATE 10 MG TABLET PO PRN (01:15)
[2020-05-02 04:33] VITALS: BP 141/93
[2020-05-02 08:00] VITALS: BP 126/82
[2020-05-02] MEDS: NICOTINE 21 MG/24 HOUR PATCH TD SCH (08:47)
[2020-05-02 16:00] VITALS: BP 124/79
[2020-05-02] MEDS: LORazepam 1 MG TABLET PO PRN (17:01)
[2020-05-02] MEDS: QUEtiapine FUMARATE 200 MG TABLET PO SCH (20:51)
[2020-05-02] MEDS: GABAPENTIN 300 MG CAPSULE PO SCH (20:51)
[2020-05-03 07:23] LABS: CHOL/HDL RATIO 3.1 (4.2-7.3)
[2020-05-03] MEDS: NALTREXONE HCL 50 MG TABLET PO SCH (08:24)
[2020-05-03] MEDS: GABAPENTIN 300 MG CAPSULE PO SCH ×4 (08:24→20:40)
[2020-05-03] MEDS: NICOTINE 21 MG/24 HOUR PATCH TD SCH (08:28)
[2020-05-03 08:37] VITALS: BP 114/55
[2020-05-03] MEDS: QUEtiapine FUMARATE 200 MG TABLET PO SCH (20:39)
[2020-05-04 08:42] VITALS: BP 140/76
[2020-05-04] MEDS ORDERED: ACETAMINOPHEN 325 MG TABLET PO PRN ×2 (10:00→19:00)
[2020-05-04] MEDS ORDERED: IBUPROFEN 600 MG TABLET PO PRN (10:00)
[2020-05-04] MEDS: NALTREXONE HCL 50 MG TABLET PO SCH (10:02)
[2020-05-04] MEDS: NICOTINE 21 MG/24 HOUR PATCH TD SCH (10:02)
[2020-05-04] MEDS: GABAPENTIN 300 MG CAPSULE PO SCH ×3 (10:03→16:22)
[2020-05-04] MEDS: LORazepam 1 MG TABLET PO PRN (16:26)
[2020-05-04] MEDS ORDERED: QUET200T29 PO (18:54)
[2020-05-04] MEDS ORDERED: GABA-1181 PO (18:54)
[2020-05-04] MEDS ORDERED: OMEG-135 PO (18:54)
[2020-05-04] MEDS ORDERED: NALT50TA PO (18:54)
[2020-05-04] MEDS ORDERED: PROMETHAZINE HCL 25 MG TABLET PO PRN (19:00)
[2020-05-04] MEDS ORDERED: GuaiFENesin/D-METHORPHAN [SUGAR-FREE] 200-20MG/10 ML SYRUP UDCUP PO PRN (19:00)
[2020-05-04] MEDS ORDERED: MAGNESIUM HYDROXIDE SUSPENSION 30 ML UDCUP PO PRN (19:00)
[2020-05-04] MEDS ORDERED: HydrOXYzine PAMOATE 50 MG CAPSULE PO PRN (19:00)
[2020-05-04] MEDS ORDERED: LOPERAMIDE HCL 2 MG CAPSULE PO PRN (19:00)
[2020-05-04] MEDS ORDERED: MAG HYDROX/AL HYDROX/SIMETH ES 30 ML SUSPENSION UDCUP PO PRN (19:00)
[2020-05-04] MEDS ORDERED: AMLO2.5T96 PO (19:37)
[2020-05-04] MEDS ORDERED: LISI-661 PO (19:38)
[2020-05-04] MEDS ORDERED: MUPI15CR12 TP (19:41)
[2020-05-04] MEDS ORDERED: NALT50TA6 PO (22:35)
[2020-05-05] MEDS ORDERED: OMEGA-3/DHA/EPA/FISH OIL 1,000 MG CAPSULE PO SCH (09:00)
[2020-05-05] MEDS ORDERED: THIAMINE 100 MG TABLET PO SCH (09:00)
[2020-05-05] MEDS ORDERED: MULTIVITAMINS WITH MINERALS, THERAPEUTIC TABLET PO SCH (09:00)
[2020-05-05] MEDS ORDERED: FOLIC ACID 1 MG TABLET PO SCH (09:00)
[2020-05-05] MEDS ORDERED: ASPIRIN 81 MG CHEWABLE TABLET PO SCH (09:00)
[2020-05-05] MEDS ORDERED: LISINOPRIL 10 MG TABLET PO SCH (09:00)
[2020-05-05] MEDS ORDERED: AmLODIPine BESYLATE 2.5 MG TABLET PO SCH (09:00)
== END 2020-05-04 20:30 | disposition home or self-care (01) | DRG 885 ==
LOC: EMS 18:54 → 3EX 05-02 01:04
PROVIDERS: ADMIT Psychiatry & Neurology Psychiatry; ATTEND Psychiatry & Neurology Psychiatry
DX: F25.1 Schizoaffective disorder, depressive type (principal); B19.20 Unspecified viral hepatitis C without hepatic coma; R45.851 Suicidal ideations; F15.90 Other stimulant use, unspecified, uncomplicated; F17.210 Nicotine dependence, cigarettes, uncomplicated; I10 Essential (primary) hypertension; I25.10 Atherosclerotic heart disease of native coronary artery without angina pectoris; I73.9 Peripheral vascular disease, unspecified; J44.9 Chronic obstructive pulmonary disease, unspecified; K21.9 Gastro-esophageal reflux disease without esophagitis; M19.90 Unspecified osteoarthritis, unspecified site; R41.843 Psychomotor deficit; Z20.828 Contact with and (suspected) exposure to other viral communicable diseases; Z55.9 Problems related to education and literacy, unspecified; Z59.0 Homelessness; Z65.3 Problems related to other legal circumstances; I25.2 Old myocardial infarction; Z91.14 Patient's other noncompliance with medication regimen; Z91.19 Patient's noncompliance with other medical treatment and regimen; Z88.8 Allergy status to other drugs, medicaments and biological substances; Z79.899 Other long term (current) drug therapy
CPT/HCPCS: 87081; 87426; G0378; G0480

== ENCOUNTER 2021-02-23 13:49 | Emergency (ER) | payer MEDICARE, OTHER ==
[~2021-02-23] VITALS: Ht 188 cm; Wt 65.9 kg
[~2021-02-23 13:49] MED LIST changes: -ASPI-728 PO; +FLUO-191 PO; +LISI-893 PO; -LISI10TA7 PO; +QUET200T PO; -QUET200T29 PO; +QUET200T30 PO
[2021-02-23 14:53] LABS: BASOPHILS % (AUTO) 1.2 % (0.0-2.0); EOSINOPHILS % (AUTO) 2.7 % (1.0-6.0); HEMATOCRIT 40.1 % (41-53); HEMOGLOBIN 13.6 g/dL (13.5-17.5); LYMPHOCYTES # (AUTO) 1.2 K/uL (1.0-4.8); LYMPHOCYTES % (AUTO) 27.5 % (22.0-44.0); MEAN CORPUSCULAR HEMOGLOBIN 29.7 pg (26.0-34.0); MEAN CORPUSCULAR HGB CONC 33.9 G/dL (31.0-37.0); MEAN CORPUSCULAR VOLUME 88 fL (80-100); MONOCYTES # (AUTO) 0.7 K/uL (0.1-1.0); MONOCYTES % (AUTO) 15.1 % (2.0-9.0); NEUTROPHILS # (AUTO) 2.4 K/uL (1.8-7.7); NEUTROPHILS % (AUTO) 53.5 % (40.0-70.0); PLATELET COUNT (AUTO) 199 K/uL (150-450); RED BLOOD CELL COUNT(AUTO) 4.58 MIL/uL (4.50-5.90); RED CELL DISTRIBUTION WIDTH 13.4 % (11.5-14.5)
[2021-02-23 15:05] LABS: ANION GAP 11 mmol/L (8-16); CALCIUM, TOTAL 8.7 mg/dL (8.8-10.5); CARBON DIOXIDE 31 mmol/L (22-29); CHLORIDE 99 mmol/L (98-107); CREATININE 0.77 mg/dL (0.60-1.30); GLOMERULAR FILTR. RATE CALC > 60 mL/min (>60); GLUCOSE,RANDOM 86 mg/dL (70-110); SODIUM SERUM 141 mmol/L (136-145); UREA NITROGEN, BLOOD 12 mg/dL (7-18)
[2021-02-23 15:10] LABS: ALANINE AMINOTRANSFERASE 75 U/L (12-78); ALBUMIN 3.5 g/dL (3.4-5.0); ALKALINE PHOSPHATASE 92 U/L (46-116); ASPARTATE AMINOTRANSFERASE 95 U/L (15-37); BILIRUBIN,TOTAL 0.3 mg/dL (0.1-1.0); TOTAL PROTEIN, SERUM 7.4 g/dL (6.4-8.2)
[2021-02-23 15:28] LABS: AMPHET/METH SCREEN,URINE POSITIVE (NEGATIVE); BARBITURATE SCREEN, URINE NEGATIVE (NEGATIVE); BENZODIAZEPINES SCREEN,URINE NEGATIVE (NEGATIVE); CANNABINOID SCREEN,URINE NEGATIVE (NEGATIVE); COCAINE SCREEN,URINE NEGATIVE (NEGATIVE); METHADONE SCREEN, URINE NEGATIVE (NEGATIVE); OPIATE SCREEN,URINE NEGATIVE (NEGATIVE)
[2021-02-23 15:30] LABS: PHENCYCLIDINE SCREEN,URINE NEGATIVE (NEGATIVE)
[2021-02-23] MEDS ORDERED: HALOPERIDOL 5 MG TABLET PO ONE (15:45)
[2021-02-23] MEDS ORDERED: LORazepam 2 MG TABLET PO ONE (15:45)
[2021-02-23 16:45] VITALS: BP 147/81
== END 2021-02-23 16:45 | disposition home or self-care (01) ==
LOC: EMS 13:57
DX: F25.1 Schizoaffective disorder, depressive type (principal); I10 Essential (primary) hypertension; F11.90 Opioid use, unspecified, uncomplicated; Z59.00 Homelessness unspecified
CPT/HCPCS: 36415; 80053; 80307; 85025; 99284; G0480

== ENCOUNTER 2021-04-25 00:17 | Emergency (ER) | payer MEDICARE, OTHER ==
[~2021-04-25] VITALS: Ht 188 cm; Wt 68.2 kg
[2021-04-25] MEDS ORDERED: LISINOPRIL 10 MG TABLET PO ONE (01:15)
[2021-04-25 04:56] VITALS: BP 179/104
[2021-04-25] MEDS ORDERED: QUET100T PO (14:26)
== END 2021-04-25 06:56 | disposition home or self-care (01) ==
LOC: EMS 00:22
DX: S09.90XA Unspecified injury of head, initial encounter (principal); I10 Essential (primary) hypertension; F31.9 Bipolar disorder, unspecified; I25.2 Old myocardial infarction; F20.9 Schizophrenia, unspecified; F17.210 Nicotine dependence, cigarettes, uncomplicated; F19.90 Other psychoactive substance use, unspecified, uncomplicated; Z59.00 Homelessness unspecified; Z88.5 Allergy status to narcotic agent; Z88.6 Allergy status to analgesic agent; Z88.8 Allergy status to other drugs, medicaments and biological substances; Z79.899 Other long term (current) drug therapy; W01.0XXA Fall on same level from slipping, tripping and stumbling without subsequent striking against object, initial encounter; Y93.01 Activity, walking, marching and hiking; Y92.89 Other specified places as the place of occurrence of the external cause; Y99.8 Other external cause status
CPT/HCPCS: 70450; 99284

== ENCOUNTER 2021-07-02 14:40 | Outpatient (CLI) | payer MEDICARE, OTHER ==
[~2021-07-02] VITALS: Ht 188 cm; Wt 65.3 kg
[~2021-07-02 14:40] MED LIST changes: -AMLO2.5T96 PO; -FLUO-191 PO; -GABA-1181 PO; -LISI-893 PO; -NALT50TA PO; -OMEG-135 PO; +QUET100T PO; -QUET200T PO; -QUET200T30 PO
[2021-07-02 15:18] VITALS: BP 132/87
[2021-07-02 15:24] VITALS: BP 132/87
[2021-07-02 15:36] LABS: GLUCOMETER DEV NAME(LOC) POC.BV
[2021-07-02] MEDS: GABAPENTIN 100 MG CAPSULE PO SCH (17:38)
[2021-07-02 21:00] VITALS: BP 160/86
[2021-07-02] MEDS ORDERED: QUEtiapine FUMARATE 300 MG TABLET PO SCH (21:00)
[2021-07-03 08:31] VITALS: BP 160/91
[2021-07-03] MEDS ORDERED: NALTREXONE HCL 50 MG TABLET PO SCH (09:00)
[2021-07-03] MEDS: GABAPENTIN 100 MG CAPSULE PO SCH (09:04)
== END 2021-07-03 09:00 | disposition home or self-care (01) ==
LOC: CSU 14:40
PROVIDERS: ATTEND Psychiatry & Neurology Psychiatry
DX: F25.9 Schizoaffective disorder, unspecified (principal); Z20.822 Contact with and (suspected) exposure to COVID-19; F17.200 Nicotine dependence, unspecified, uncomplicated; Z88.8 Allergy status to other drugs, medicaments and biological substances
CPT/HCPCS: 90792; Z7610

== ENCOUNTER 2021-07-19 16:29 | Emergency (ER) | payer MEDICARE, OTHER ==
[~2021-07-19] VITALS: Ht 188 cm; Wt 65.9 kg
[2021-07-19] MEDS ORDERED: ACETAMINOPHEN 500 MG TABLET PO ONE (17:00)
[2021-07-19 17:12] LABS: EOSINOPHILS % (AUTO) 2.6 % (1.0-6.0); HEMATOCRIT 34.9 % (41-53); HEMOGLOBIN 11.9 g/dL (13.5-17.5); LYMPHOCYTES # (AUTO) 2.1 K/uL (1.0-4.8); LYMPHOCYTES % (AUTO) 25.7 % (22.0-44.0); MEAN CORPUSCULAR HEMOGLOBIN 29.8 pg (26.0-34.0); MEAN CORPUSCULAR VOLUME 88 fL (80-100); MONOCYTES # (AUTO) 0.9 K/uL (0.1-1.0); MONOCYTES % (AUTO) 11.8 % (2.0-9.0); NEUTROPHILS # (AUTO) 4.7 K/uL (1.8-7.7); NEUTROPHILS % (AUTO) 58.9 % (40.0-70.0); PLATELET COUNT (AUTO) 202 K/uL (150-450); RED BLOOD CELL COUNT(AUTO) 3.99 MIL/uL (4.50-5.90); RED CELL DISTRIBUTION WIDTH 13.6 % (11.5-14.5)
[2021-07-19 17:25] LABS: ANION GAP 5 mmol/L (8-16); CALCIUM, TOTAL 8.2 mg/dL (8.8-10.5); CARBON DIOXIDE 30 mmol/L (22-29); CHLORIDE 101 mmol/L (98-107); CREATININE 0.92 mg/dL (0.60-1.30); GLOMERULAR FILTR. RATE CALC > 60 mL/min (>60); GLUCOSE,RANDOM 110 mg/dL (70-110); POTASSIUM 3.5 mmol/L (3.5-5.1); SODIUM SERUM 136 mmol/L (136-145); UREA NITROGEN, BLOOD 19 mg/dL (7-18)
[2021-07-19 17:31] LABS: ALANINE AMINOTRANSFERASE 77 U/L (12-78); ALBUMIN 3.1 g/dL (3.4-5.0); ALKALINE PHOSPHATASE 75 U/L (46-116); ASPARTATE AMINOTRANSFERASE 113 U/L (15-37); BILIRUBIN,TOTAL 0.5 mg/dL (0.1-1.0); TOTAL PROTEIN, SERUM 6.6 g/dL (6.4-8.2)
[2021-07-19] MEDS ORDERED: LORazepam 1 MG TABLET PO ONE (17:45)
[2021-07-19 18:16] VITALS: BP 161/94
== END 2021-07-19 18:48 | disposition home or self-care (01) ==
LOC: EMS 16:33
DX: R55 Syncope and collapse (principal); R07.89 Other chest pain; F15.10 Other stimulant abuse, uncomplicated; F25.9 Schizoaffective disorder, unspecified; I10 Essential (primary) hypertension; J44.9 Chronic obstructive pulmonary disease, unspecified; F17.210 Nicotine dependence, cigarettes, uncomplicated; Z59.00 Homelessness unspecified; Z88.5 Allergy status to narcotic agent; Z88.8 Allergy status to other drugs, medicaments and biological substances; Z79.899 Other long term (current) drug therapy
CPT/HCPCS: 36415; 71045; 80053; 84484; 85025; 93005; 99285; G0480

== ENCOUNTER 2021-07-23 14:32 | Inpatient (IN) | payer MEDICARE, MEDICAID ==
[~2021-07-23] VITALS: Ht 188 cm; Wt 63.2 kg
[2021-07-23 15:32] LABS: BASOPHILS % (AUTO) 1.2 % (0.0-2.0); EOSINOPHILS % (AUTO) 3.2 % (1.0-6.0); HEMATOCRIT 38.1 % (41-53); HEMOGLOBIN 12.8 g/dL (13.5-17.5); LYMPHOCYTES # (AUTO) 1.5 K/uL (1.0-4.8); LYMPHOCYTES % (AUTO) 28.7 % (22.0-44.0); MEAN CORPUSCULAR HEMOGLOBIN 29.6 pg (26.0-34.0); MEAN CORPUSCULAR HGB CONC 33.6 G/dL (31.0-37.0); MEAN CORPUSCULAR VOLUME 88 fL (80-100); MONOCYTES # (AUTO) 0.8 K/uL (0.1-1.0); MONOCYTES % (AUTO) 15.4 % (2.0-9.0); NEUTROPHILS # (AUTO) 2.7 K/uL (1.8-7.7); NEUTROPHILS % (AUTO) 51.5 % (40.0-70.0); PLATELET COUNT (AUTO) 189 K/uL (150-450); RED BLOOD CELL COUNT(AUTO) 4.32 MIL/uL (4.50-5.90); RED CELL DISTRIBUTION WIDTH 14.1 % (11.5-14.5)
[2021-07-23 15:41] LABS: ANION GAP 9 mmol/L (8-16); CALCIUM, TOTAL 8.7 mg/dL (8.8-10.5); CARBON DIOXIDE 28 mmol/L (22-29); CHLORIDE 100 mmol/L (98-107); CREATININE 0.83 mg/dL (0.60-1.30); GLOMERULAR FILTR. RATE CALC > 60 mL/min (>60); GLUCOSE,RANDOM 120 mg/dL (70-110); POTASSIUM 3.5 mmol/L (3.5-5.1); SODIUM SERUM 137 mmol/L (136-145); UREA NITROGEN, BLOOD 10 mg/dL (7-18)
[2021-07-23 15:46] LABS: ALANINE AMINOTRANSFERASE 75 U/L (12-78); ALKALINE PHOSPHATASE 81 U/L (46-116); ASPARTATE AMINOTRANSFERASE 80 U/L (15-37); BILIRUBIN,TOTAL 0.2 mg/dL (0.1-1.0)
[2021-07-23] MEDS ORDERED: ZOLPIDEM TARTRATE 10 MG TABLET PO PRN (17:45)
[2021-07-23] MEDS ORDERED: HALOPERIDOL 5 MG TABLET PO PRN (17:45)
[2021-07-23 20:10] LABS: COVID AG,FIA SOURCE NASAL SWAB
[2021-07-24 01:59] VITALS: BP 152/93
[2021-07-24] MEDS ORDERED: -PHARMACY VACCINE NOTE- MISC ONE (03:45)
[2021-07-24 08:30] VITALS: BP 186/102
[2021-07-24] MEDS: AmLODIPine BESYLATE 5 MG TABLET PO SCH (08:35)
[2021-07-24] MEDS ORDERED: LOPERAMIDE HCL 2 MG CAPSULE PO PRN (09:00)
[2021-07-24] MEDS ORDERED: MAGNESIUM HYDROXIDE SUSPENSION 30 ML UDCUP PO PRN (09:00)
[2021-07-24] MEDS ORDERED: DOCUSATE SODIUM 100 MG CAPSULE PO PRN (09:00)
[2021-07-24] MEDS ORDERED: NICOTINE 14 MG/24 HOUR PATCH TD PRN (09:00)
[2021-07-24] MEDS ORDERED: ACETAMINOPHEN 325 MG TABLET PO PRN (09:00)
[2021-07-24] MEDS ORDERED: ONDANSETRON HCL 4 MG TABLET PO PRN (09:00)
[2021-07-24] MEDS ORDERED: IBUPROFEN 400 MG TABLET PO PRN (09:00)
[2021-07-24] MEDS ORDERED: MAG HYDROX/AL HYDROX/SIMETH ES 30 ML SUSPENSION UDCUP PO PRN (09:00)
[2021-07-24] MEDS ORDERED: ALBUTEROL SULFATE HFA 90 MCG/PUFF 8 GM INHALER IH PRN (09:00)
[2021-07-24] MEDS ORDERED: PETROLATUM,WHITE 28 GM JELLY TP PRN (09:00)
[2021-07-24] MEDS ORDERED: GuaiFENesin/D-METHORPHAN [SUGAR-FREE] 200-20MG/10 ML SYRUP UDCUP PO PRN (09:00)
[2021-07-24] MEDS ORDERED: CloNIDine HCL 0.1 MG TABLET PO PRN (09:00)
[2021-07-24 09:30] VITALS: BP 165/98
[2021-07-24 10:30] VITALS: BP 144/100
[2021-07-24 16:17] VITALS: BP 163/70
[2021-07-24] MEDS: QUEtiapine FUMARATE 300 MG TABLET PO SCH (20:32)
[2021-07-25 01:02] VITALS: BP 145/76
[2021-07-25 07:49] LABS: HEMOGLOBIN A1C 5.4 % (3.8-5.6)
[2021-07-25 08:01] LABS: CHOL/HDL RATIO 4.2 (4.2-7.3); FREE T4 (FREE THYROXINE) 0.94 ng/dL (0.76-1.46); THYROID STIMULATING HORMONE 1.22 uIU/mL (0.36-3.74)
[2021-07-25] MEDS: AmLODIPine BESYLATE 5 MG TABLET PO SCH (08:14)
[2021-07-25] MEDS: LORazepam 2 MG TABLET PO PRN (08:14)
[2021-07-25 08:16] VITALS: BP 128/70
[2021-07-25 16:18] VITALS: BP 107/78
[2021-07-25] MEDS: QUEtiapine FUMARATE 300 MG TABLET PO SCH (20:15)
[2021-07-26 06:20] VITALS: BP 135/84
[2021-07-26 08:40] VITALS: BP 103/73
[2021-07-26] MEDS: AmLODIPine BESYLATE 5 MG TABLET PO SCH (09:11)
[2021-07-26 16:13] VITALS: BP_SYST 105; BP_SYST 137; BP_DIAS 62; BP_DIAS 84
[2021-07-26] MEDS: QUEtiapine FUMARATE 300 MG TABLET PO SCH (20:11)
[2021-07-27 00:51] VITALS: BP 126/78
[2021-07-27 07:00] VITALS: BP 127/87
[2021-07-27] MEDS: AmLODIPine BESYLATE 5 MG TABLET PO SCH (08:56)
[2021-07-27 09:38] VITALS: BP 118/65
[2021-07-27 18:50] VITALS: BP 136/94
[2021-07-27] MEDS: QUEtiapine FUMARATE 300 MG TABLET PO SCH (20:12)
[2021-07-28 08:05] LABS: GLUCOMETER DEV NAME(LOC) POC.BV
[2021-07-28 08:09] VITALS: BP 129/81
[2021-07-28] MEDS: AmLODIPine BESYLATE 5 MG TABLET PO SCH ×2 (08:49→09:00)
[2021-07-28 11:08] VITALS: BP 110/68
[2021-07-28 14:10] VITALS: BP 150/98
[2021-07-28 16:15] VITALS: BP 144/81
[2021-07-28 19:10] VITALS: BP 146/81
[2021-07-28] MEDS: QUEtiapine FUMARATE 300 MG TABLET PO SCH (20:40)
[2021-07-28 22:20] VITALS: BP 142/86
[2021-07-29] VITALS: BP 130/74
[2021-07-29 04:00] VITALS: BP 131/79
[2021-07-29 07:53] LABS: MAGNESIUM 2.2 mg/dL (1.80-2.40); PHOSPHORUS 3.8 mg/dL (2.5-4.9)
[2021-07-29] MEDS: MULTIVITAMINS WITH MINERALS, THERAPEUTIC TABLET PO SCH (08:21)
[2021-07-29] MEDS: THIAMINE 100 MG TABLET PO SCH (08:21)
[2021-07-29] MEDS: AmLODIPine BESYLATE 5 MG TABLET PO SCH (08:21)
[2021-07-29] MEDS: LORazepam 2 MG TABLET PO PRN ×2 (08:40→20:17)
[2021-07-29 16:17] VITALS: BP 143/76
[2021-07-29 18:35] VITALS: BP 141/81
[2021-07-29] MEDS: QUEtiapine FUMARATE 300 MG TABLET PO SCH (20:13)
[2021-07-29 22:19] VITALS: BP 141/81
[2021-07-30 00:29] VITALS: BP 135/79
[2021-07-30 04:30] VITALS: BP 139/77
[2021-07-30 08:13] VITALS: BP 138/84
[2021-07-30] MEDS: THIAMINE 100 MG TABLET PO SCH (08:54)
[2021-07-30] MEDS: AmLODIPine BESYLATE 5 MG TABLET PO SCH (08:54)
[2021-07-30] MEDS: MULTIVITAMINS WITH MINERALS, THERAPEUTIC TABLET PO SCH (08:54)
[2021-07-30 16:09] VITALS: BP 144/85
[2021-07-30] MEDS: QUEtiapine FUMARATE 300 MG TABLET PO SCH (20:37)
[2021-07-31 00:58] VITALS: BP 141/73
[2021-07-31] MEDS: MULTIVITAMINS WITH MINERALS, THERAPEUTIC TABLET PO SCH (08:12)
[2021-07-31] MEDS: THIAMINE 100 MG TABLET PO SCH (08:12)
[2021-07-31] MEDS: AmLODIPine BESYLATE 5 MG TABLET PO SCH (08:12)
[2021-07-31 08:15] VITALS: BP 128/66
[2021-07-31 16:39] VITALS: BP 139/70
[2021-07-31] MEDS: QUEtiapine FUMARATE 300 MG TABLET PO SCH (20:22)
[2021-07-31] MEDS: LORazepam 2 MG TABLET PO PRN (20:22)
[2021-08-01 02:32] VITALS: BP 128/74
[2021-08-01 08:15] VITALS: BP 127/74
[2021-08-01] MEDS: THIAMINE 100 MG TABLET PO SCH (08:44)
[2021-08-01] MEDS: MULTIVITAMINS WITH MINERALS, THERAPEUTIC TABLET PO SCH (08:44)
[2021-08-01] MEDS: AmLODIPine BESYLATE 5 MG TABLET PO SCH (08:44)
[2021-08-01 16:09] VITALS: BP 143/90
[2021-08-01] MEDS: LORazepam 2 MG TABLET PO PRN (17:19)
[2021-08-01] MEDS: QUEtiapine FUMARATE 300 MG TABLET PO SCH (20:02)
[2021-08-02 01:07] VITALS: BP 132/79
[2021-08-02] MEDS: LORazepam 2 MG TABLET PO PRN ×2 (03:21→17:14)
[2021-08-02 08:07] VITALS: BP 112/91
[2021-08-02] MEDS: MULTIVITAMINS WITH MINERALS, THERAPEUTIC TABLET PO SCH (08:28)
[2021-08-02] MEDS: AmLODIPine BESYLATE 5 MG TABLET PO SCH (08:29)
[2021-08-02] MEDS: THIAMINE 100 MG TABLET PO SCH (08:29)
[2021-08-02 16:23] VITALS: BP 126/70
[2021-08-02] MEDS: QUEtiapine FUMARATE 300 MG TABLET PO SCH (20:34)
[2021-08-03 01:42] VITALS: BP 122/82
[2021-08-03] MEDS: THIAMINE 100 MG TABLET PO SCH (09:19)
[2021-08-03] MEDS: MULTIVITAMINS WITH MINERALS, THERAPEUTIC TABLET PO SCH (09:19)
[2021-08-03] MEDS: AmLODIPine BESYLATE 5 MG TABLET PO SCH (09:19)
[2021-08-03 09:24] VITALS: BP 136/86
[2021-08-03 17:50] VITALS: BP 126/65
[2021-08-03] MEDS: LORazepam 2 MG TABLET PO PRN (17:50)
[2021-08-03] MEDS: QUEtiapine FUMARATE 300 MG TABLET PO SCH (20:14)
[2021-08-04 00:59] VITALS: BP 125/76
[2021-08-04 08:00] LABS: GLUCOMETER DEV NAME(LOC) POC.BV
[2021-08-04 08:26] VITALS: BP 129/73
[2021-08-04] MEDS: AmLODIPine BESYLATE 5 MG TABLET PO SCH (08:28)
[2021-08-04] MEDS: THIAMINE 100 MG TABLET PO SCH (08:28)
[2021-08-04] MEDS: MULTIVITAMINS WITH MINERALS, THERAPEUTIC TABLET PO SCH (08:28)
[2021-08-04] MEDS: LORazepam 2 MG TABLET PO PRN ×2 (08:29→18:35)
[2021-08-04 16:12] VITALS: BP 130/73
[2021-08-04] MEDS: QUEtiapine FUMARATE 300 MG TABLET PO SCH (20:20)
[2021-08-05 01:05] VITALS: BP 128/69
[2021-08-05 08:19] VITALS: BP 130/76
[2021-08-05] MEDS: MULTIVITAMINS WITH MINERALS, THERAPEUTIC TABLET PO SCH (08:30)
[2021-08-05] MEDS: THIAMINE 100 MG TABLET PO SCH (08:30)
[2021-08-05] MEDS: AmLODIPine BESYLATE 5 MG TABLET PO SCH (08:31)
[2021-08-05] MEDS ORDERED: AMLO-257 PO (11:03)
[2021-08-05] MEDS ORDERED: QUET300T19 PO (11:35)
[2021-08-05 16:15] VITALS: BP 120/70
== END 2021-08-05 16:40 | disposition home or self-care (01) | DRG 885 ==
LOC: EMS 14:32 → B2S 23:04
PROVIDERS: ADMIT Psychiatry & Neurology Child & Adolescent Psychiatry; ATTEND Psychiatry & Neurology Child & Adolescent Psychiatry
DX: F25.1 Schizoaffective disorder, depressive type (principal); B18.2 Chronic viral hepatitis C; E44.0 Moderate protein-calorie malnutrition; Z68.1 Body mass index [BMI] 19.9 or less, adult; F41.9 Anxiety disorder, unspecified; E78.5 Hyperlipidemia, unspecified; I10 Essential (primary) hypertension; I25.10 Atherosclerotic heart disease of native coronary artery without angina pectoris; F99 Mental disorder, not otherwise specified; F15.90 Other stimulant use, unspecified, uncomplicated; Z20.822 Contact with and (suspected) exposure to COVID-19; J44.9 Chronic obstructive pulmonary disease, unspecified; K21.9 Gastro-esophageal reflux disease without esophagitis; Z59.00 Homelessness unspecified; Z87.891 Personal history of nicotine dependence; Z88.5 Allergy status to narcotic agent; Z88.8 Allergy status to other drugs, medicaments and biological substances
CPT/HCPCS: 80053; 80061; 83036; 83735; 84100; 84439; 84443; 85025; 99285; G0480

== ENCOUNTER 2021-08-07 13:24 | Emergency (ER) | payer MEDICARE, OTHER ==
[~2021-08-07] VITALS: Ht 188 cm; Wt 68.2 kg
[~2021-08-07 13:24] MED LIST changes: +AMLO-257 PO; -QUET100T PO; +QUET300T19 PO
[2021-08-07] MEDS ORDERED: GABA-1181 PO (13:45)
[2021-08-07] MEDS ORDERED: OMEG-108 PO (13:45)
[2021-08-07 16:15] VITALS: BP 128/71
== END 2021-08-07 16:49 | disposition home or self-care (01) ==
LOC: EMS 13:26
DX: T18.9XXA Foreign body of alimentary tract, part unspecified, initial encounter (principal); F31.9 Bipolar disorder, unspecified; I50.9 Heart failure, unspecified; J44.9 Chronic obstructive pulmonary disease, unspecified; F20.9 Schizophrenia, unspecified; F17.210 Nicotine dependence, cigarettes, uncomplicated; F19.90 Other psychoactive substance use, unspecified, uncomplicated; Z59.00 Homelessness unspecified; Z88.8 Allergy status to other drugs, medicaments and biological substances; Z88.5 Allergy status to narcotic agent; W45.8XXA Other foreign body or object entering through skin, initial encounter; Y93.89 Activity, other specified; Y92.89 Other specified places as the place of occurrence of the external cause; Y99.8 Other external cause status
CPT/HCPCS: 70360; 99283

== ENCOUNTER 2021-08-20 11:57 | Emergency (ER) | payer MEDICARE, OTHER ==
[~2021-08-20] VITALS: Ht 188 cm; Wt 64.5 kg
[~2021-08-20 11:57] MED LIST changes: -AMLO-257 PO; +GABA-1181 PO; +OMEG-108 PO
[2021-08-20 12:22] VITALS: BP 142/96
[2021-08-20] MEDS ORDERED: AMLO-257 PO (13:52)
[2021-08-20] MEDS ORDERED: KETOROLAC TROMETHAMINE 30 MG/ML VIAL IM ONE (14:00)
== END 2021-08-20 14:22 | disposition home or self-care (01) ==
LOC: EMS 12:03
DX: G89.29 Other chronic pain (principal); M79.606 Pain in leg, unspecified; I11.0 Hypertensive heart disease with heart failure; I50.9 Heart failure, unspecified; F20.9 Schizophrenia, unspecified; J44.9 Chronic obstructive pulmonary disease, unspecified; F17.210 Nicotine dependence, cigarettes, uncomplicated; F19.90 Other psychoactive substance use, unspecified, uncomplicated; Z76.0 Encounter for issue of repeat prescription; Z59.00 Homelessness unspecified; Z88.5 Allergy status to narcotic agent; Z88.8 Allergy status to other drugs, medicaments and biological substances
CPT/HCPCS: 96372; 99283; J1885

== ENCOUNTER 2021-09-15 18:05 | Inpatient (IN) | payer MEDICARE, MEDICAID ==
[~2021-09-15] VITALS: Ht 188 cm; Wt 63.0 kg
[~2021-09-15 18:05] MED LIST changes: +AMLO-257 PO
[2021-09-15 19:46] LABS: BASOPHILS % (AUTO) 1.1 % (0.0-2.0); EOSINOPHILS % (AUTO) 3.2 % (1.0-6.0); HEMATOCRIT 38.2 % (41-53); HEMOGLOBIN 13.2 g/dL (13.5-17.5); LYMPHOCYTES # (AUTO) 2.4 K/uL (1.0-4.8); MEAN CORPUSCULAR HEMOGLOBIN 30.1 pg (26.0-34.0); MEAN CORPUSCULAR HGB CONC 34.6 G/dL (31.0-37.0); MEAN CORPUSCULAR VOLUME 87 fL (80-100); MONOCYTES # (AUTO) 0.8 K/uL (0.1-1.0); MONOCYTES % (AUTO) 12.2 % (2.0-9.0); NEUTROPHILS # (AUTO) 3.2 K/uL (1.8-7.7); NEUTROPHILS % (AUTO) 47.5 % (40.0-70.0); PLATELET COUNT (AUTO) 220 K/uL (150-450); RED BLOOD CELL COUNT(AUTO) 4.38 MIL/uL (4.50-5.90); RED CELL DISTRIBUTION WIDTH 14.4 % (11.5-14.5)
[2021-09-15 19:55] LABS: ANION GAP 8 mmol/L (8-16); CALCIUM, TOTAL 8.9 mg/dL (8.8-10.5); CARBON DIOXIDE 29 mmol/L (22-29); CHLORIDE 96 mmol/L (98-107); CREATININE 1.01 mg/dL (0.60-1.30); GLOMERULAR FILTR. RATE CALC > 60 mL/min (>60); GLUCOSE,RANDOM 108 mg/dL (70-110); POTASSIUM 3.4 mmol/L (3.5-5.1); SODIUM SERUM 133 mmol/L (136-145); UREA NITROGEN, BLOOD 13 mg/dL (7-18)
[2021-09-15 20:00] LABS: ALANINE AMINOTRANSFERASE 38 U/L (12-78); ALBUMIN 3.4 g/dL (3.4-5.0); ALKALINE PHOSPHATASE 81 U/L (46-116); ASPARTATE AMINOTRANSFERASE 39 U/L (15-37); BILIRUBIN,TOTAL 0.3 mg/dL (0.1-1.0); TOTAL PROTEIN, SERUM 7.4 g/dL (6.4-8.2)
[2021-09-15] MEDS ORDERED: ZOLPIDEM TARTRATE 10 MG TABLET PO PRN (20:15)
[2021-09-15] MEDS ORDERED: LORazepam 2 MG TABLET PO PRN (20:15)
[2021-09-15] MEDS ORDERED: HALOPERIDOL 5 MG TABLET PO PRN (20:15)
[2021-09-15 23:05] LABS: COVID AG,FIA SOURCE NASOPHARYNGEAL
[2021-09-16 01:34] VITALS: BP 117/91
[2021-09-16] MEDS ORDERED: ACETAMINOPHEN 325 MG TABLET PO PRN (08:45)
[2021-09-16] MEDS ORDERED: MAG HYDROX/AL HYDROX/SIMETH ES 30 ML SUSPENSION UDCUP PO PRN (08:45)
[2021-09-16] MEDS ORDERED: BENZOCAINE/MENTHOL LOZENGE PO PRN (08:45)
[2021-09-16] MEDS ORDERED: CloNIDine HCL 0.1 MG TABLET PO PRN (08:45)
[2021-09-16] MEDS ORDERED: DOCUSATE SODIUM 100 MG CAPSULE PO PRN (08:45)
[2021-09-16] MEDS ORDERED: POTASSIUM CHLORIDE 20 MEQ ER TABLET PO ONE (08:45)
[2021-09-16] MEDS ORDERED: MAGNESIUM HYDROXIDE SUSPENSION 30 ML UDCUP PO PRN (08:45)
[2021-09-16] MEDS ORDERED: BACITRACIN 28 GM OINTMENT TP PRN (08:45)
[2021-09-16] MEDS ORDERED: LOPERAMIDE HCL 2 MG CAPSULE PO PRN (08:45)
[2021-09-16] MEDS ORDERED: OMEPRAZOLE 20 MG CAPSULE PO PRN (08:45)
[2021-09-16] MEDS ORDERED: IBUPROFEN 600 MG TABLET PO PRN (08:45)
[2021-09-16] MEDS ORDERED: ALBUTEROL SULFATE HFA 90 MCG/PUFF 8 GM INHALER IH PRN (08:45)
[2021-09-16] MEDS ORDERED: PETROLATUM,WHITE 28 GM JELLY TP PRN (08:45)
[2021-09-16] MEDS: AmLODIPine BESYLATE 5 MG TABLET PO SCH (10:05)
[2021-09-16] MEDS: OMEGA-3/DHA/EPA/FISH OIL 1,000 MG CAPSULE PO SCH (10:05)
[2021-09-16 10:25] VITALS: BP 110/62
[2021-09-16 16:22] VITALS: BP 147/85
[2021-09-17 01:55] VITALS: BP 129/78
[2021-09-17 07:45] LABS: HEMOGLOBIN A1C 5.2 % (3.8-5.6)
[2021-09-17 08:03] LABS: CHOL/HDL RATIO 3.2 (4.2-7.3); FREE T4 (FREE THYROXINE) 1.03 ng/dL (0.76-1.46); THYROID STIMULATING HORMONE 0.84 uIU/mL (0.36-3.74)
[2021-09-17 08:43] LABS: POTASSIUM 3.7 mmol/L (3.5-5.1)
[2021-09-17 09:09] VITALS: BP 131/80
[2021-09-17] MEDS: OMEGA-3/DHA/EPA/FISH OIL 1,000 MG CAPSULE PO SCH (09:12)
[2021-09-17] MEDS: AmLODIPine BESYLATE 5 MG TABLET PO SCH (09:12)
[2021-09-17 16:17] VITALS: BP 141/86
[2021-09-18] VITALS: BP 135/82
[2021-09-18 08:19] VITALS: BP 130/93
[2021-09-18] MEDS: OMEGA-3/DHA/EPA/FISH OIL 1,000 MG CAPSULE PO SCH (08:36)
[2021-09-18] MEDS: THIAMINE 100 MG TABLET PO SCH (08:36)
[2021-09-18] MEDS: AmLODIPine BESYLATE 5 MG TABLET PO SCH (08:36)
[2021-09-18] MEDS: MULTIVITAMINS WITH MINERALS, THERAPEUTIC TABLET PO SCH (08:36)
[2021-09-18 16:12] VITALS: BP 132/83
[2021-09-19 06:06] VITALS: BP_SYST 153
[2021-09-19 08:11] VITALS: BP_SYST 147; BP_SYST 162; BP_DIAS 100; BP_DIAS 99
[2021-09-19] MEDS: THIAMINE 100 MG TABLET PO SCH (08:24)
[2021-09-19] MEDS: AmLODIPine BESYLATE 5 MG TABLET PO SCH (08:24)
[2021-09-19] MEDS: MULTIVITAMINS WITH MINERALS, THERAPEUTIC TABLET PO SCH (08:24)
[2021-09-19] MEDS: OMEGA-3/DHA/EPA/FISH OIL 1,000 MG CAPSULE PO SCH (08:24)
[2021-09-19 10:10] VITALS: BP 147/99
== END 2021-09-19 14:28 | disposition home or self-care (01) | DRG 885 ==
LOC: EMS 18:09 → B2S 09-16 00:10
PROVIDERS: ADMIT Psychiatry & Neurology Psychiatry; ATTEND Psychiatry & Neurology Psychiatry
DX: F25.9 Schizoaffective disorder, unspecified (principal); I11.0 Hypertensive heart disease with heart failure; B19.20 Unspecified viral hepatitis C without hepatic coma; R45.851 Suicidal ideations; E87.1 Hypo-osmolality and hyponatremia; F32.A Depression, unspecified; F41.9 Anxiety disorder, unspecified; I50.9 Heart failure, unspecified; J44.9 Chronic obstructive pulmonary disease, unspecified; F15.10 Other stimulant abuse, uncomplicated; F12.90 Cannabis use, unspecified, uncomplicated; E87.6 Hypokalemia; G47.00 Insomnia, unspecified; Z20.822 Contact with and (suspected) exposure to COVID-19; K59.00 Constipation, unspecified; Z59.00 Homelessness unspecified; Z87.891 Personal history of nicotine dependence; Z88.5 Allergy status to narcotic agent; Z88.8 Allergy status to other drugs, medicaments and biological substances; Z72.89 Other problems related to lifestyle; Z71.51 Drug abuse counseling and surveillance of drug abuser
CPT/HCPCS: 80053; 80061; 83036; 84132; 84295; 84439; 84443; 85025; 99285; G0480

== ENCOUNTER 2021-11-25 14:24 | Emergency (ER) | payer MEDICARE, OTHER ==
[~2021-11-25] VITALS: Ht 188 cm; Wt 68.2 kg
[2021-11-25] MEDS ORDERED: NITROGLYCERIN 2% (1 GM=INCH) PACKET TP ONE (14:45)
[2021-11-25] MEDS ORDERED: ASPIRIN 81 MG CHEWABLE TABLET PO ONE (14:45)
[2021-11-25 15:11] LABS: BASOPHILS % (AUTO) 0.8 % (0.0-2.0); EOSINOPHILS % (AUTO) 1.6 % (1.0-6.0); HEMATOCRIT 36.2 % (41-53); HEMOGLOBIN 12.5 g/dL (13.5-17.5); LYMPHOCYTES # (AUTO) 2.7 K/uL (1.0-4.8); LYMPHOCYTES % (AUTO) 30.1 % (22.0-44.0); MEAN CORPUSCULAR HEMOGLOBIN 29.7 pg (26.0-34.0); MEAN CORPUSCULAR HGB CONC 34.5 G/dL (31.0-37.0); MEAN CORPUSCULAR VOLUME 86 fL (80-100); MONOCYTES % (AUTO) 11.3 % (2.0-9.0); NEUTROPHILS # (AUTO) 5.1 K/uL (1.8-7.7); NEUTROPHILS % (AUTO) 56.2 % (40.0-70.0); PLATELET COUNT (AUTO) 220 K/uL (150-450); RED CELL DISTRIBUTION WIDTH 13.6 % (11.5-14.5)
[2021-11-25 15:18] LABS: ANION GAP 10 mmol/L (8-16); CALCIUM, TOTAL 8.9 mg/dL (8.8-10.5); CARBON DIOXIDE 25 mmol/L (22-29); CHLORIDE 95 mmol/L (98-107); CREATININE 0.68 mg/dL (0.60-1.30); GLUCOSE,RANDOM 87 mg/dL (70-110); POTASSIUM 3.1 mmol/L (3.5-5.1); SODIUM SERUM 130 mmol/L (136-145); UREA NITROGEN, BLOOD 18 mg/dL (7-18)
[2021-11-25 15:19] LABS: GLOMERULAR FILTR. RATE CALC > 60 mL/min (>60)
[2021-11-25] MEDS ORDERED: HYDROCODONE/ACETAMINOPHEN 5-325 MG TABLET PO ONE (16:00)
[2021-11-25 16:21] VITALS: BP 120/72
== END 2021-11-25 17:14 | disposition home or self-care (01) ==
LOC: EMS 14:24
DX: R07.89 Other chest pain (principal); F31.9 Bipolar disorder, unspecified; I11.0 Hypertensive heart disease with heart failure; I50.9 Heart failure, unspecified; J44.9 Chronic obstructive pulmonary disease, unspecified; F20.9 Schizophrenia, unspecified; F17.210 Nicotine dependence, cigarettes, uncomplicated; F15.90 Other stimulant use, unspecified, uncomplicated; Z87.19 Personal history of other diseases of the digestive system; Z87.09 Personal history of other diseases of the respiratory system; Z98.890 Other specified postprocedural states; Z59.00 Homelessness unspecified; Z88.5 Allergy status to narcotic agent; Z88.8 Allergy status to other drugs, medicaments and biological substances
CPT/HCPCS: 71045; 80048; 84484; 85025; 93005; 99285; 36415-L1; 36415-TC

== ENCOUNTER 2021-11-29 17:45 | Inpatient (IN) | payer MEDICARE, OTHER ==
[~2021-11-29] VITALS: Ht 188 cm; Wt 66.4 kg
[2021-11-29 18:53] LABS: COVID AG,FIA SOURCE NASOPHARYNGEAL
[2021-11-29 19:11] LABS: BASOPHILS % (AUTO) 0.7 % (0.0-2.0); EOSINOPHILS % (AUTO) 2.2 % (1.0-6.0); LYMPHOCYTES # (AUTO) 1.8 K/uL (1.0-4.8); LYMPHOCYTES % (AUTO) 35.1 % (22.0-44.0); MEAN CORPUSCULAR HEMOGLOBIN 29.8 pg (26.0-34.0); MEAN CORPUSCULAR HGB CONC 34.3 G/dL (31.0-37.0); MEAN CORPUSCULAR VOLUME 87 fL (80-100); MONOCYTES # (AUTO) 0.5 K/uL (0.1-1.0); MONOCYTES % (AUTO) 9.3 % (2.0-9.0); NEUTROPHILS # (AUTO) 2.7 K/uL (1.8-7.7); NEUTROPHILS % (AUTO) 52.7 % (40.0-70.0); PLATELET COUNT (AUTO) 192 K/uL (150-450); RED BLOOD CELL COUNT(AUTO) 4.03 MIL/uL (4.50-5.90); RED CELL DISTRIBUTION WIDTH 13.6 % (11.5-14.5)
[2021-11-29] MEDS ORDERED: LORazepam 1 MG TABLET PO ONE (19:15)
[2021-11-29 19:24] LABS: ALANINE AMINOTRANSFERASE 36 U/L (12-78); ALBUMIN 3.1 g/dL (3.4-5.0); ALKALINE PHOSPHATASE 62 U/L (46-116); ANION GAP 14 mmol/L (8-16); ASPARTATE AMINOTRANSFERASE 42 U/L (15-37); BILIRUBIN,TOTAL 0.2 mg/dL (0.1-1.0); CALCIUM, TOTAL 8.9 mg/dL (8.8-10.5); CARBON DIOXIDE 27 mmol/L (22-29); CHLORIDE 101 mmol/L (98-107); CREATININE 0.86 mg/dL (0.60-1.30); GLOMERULAR FILTR. RATE CALC > 60 mL/min (>60); GLUCOSE,RANDOM 107 mg/dL (70-110); SODIUM SERUM 142 mmol/L (136-145); TOTAL PROTEIN, SERUM 6.5 g/dL (6.4-8.2); UREA NITROGEN, BLOOD 11 mg/dL (7-18)
[2021-11-29] MEDS ORDERED: QUEtiapine FUMARATE 100 MG TABLET PO ONE (20:00)
[2021-11-29] MEDS ORDERED: HALOPERIDOL 5 MG TABLET PO ONE (20:00)
[2021-11-29] MEDS ORDERED: LORazepam 2 MG TABLET PO PRN (21:00)
[2021-11-29] MEDS ORDERED: ACETAMINOPHEN 325 MG TABLET PO PRN (21:00)
[2021-11-29] MEDS: DIVALPROEX SODIUM 500 MG ER TABLET PO SCH (21:00)
[2021-11-29] MEDS ORDERED: QUEtiapine FUMARATE 100 MG TABLET PO PRN (21:00)
[2021-11-29] MEDS ORDERED: ZOLPIDEM TARTRATE 10 MG TABLET PO PRN (21:00)
[2021-11-29] MEDS ORDERED: PROMETHAZINE HCL 25 MG TABLET PO PRN (21:00)
[2021-11-29] MEDS ORDERED: MAGNESIUM HYDROXIDE SUSPENSION 30 ML UDCUP PO PRN (21:00)
[2021-11-29] MEDS ORDERED: MAG HYDROX/AL HYDROX/SIMETH ES 30 ML SUSPENSION UDCUP PO PRN (21:00)
[2021-11-29] MEDS ORDERED: GuaiFENesin/D-METHORPHAN [SUGAR-FREE] 200-20MG/10 ML SYRUP UDCUP PO PRN (21:00)
[2021-11-29] MEDS ORDERED: LOPERAMIDE HCL 2 MG CAPSULE PO PRN (21:00)
[2021-11-29] MEDS ORDERED: HydrOXYzine PAMOATE 50 MG CAPSULE PO PRN (21:00)
[2021-11-29 21:09] LABS: AMPHET/METH SCREEN,URINE POSITIVE (NEGATIVE); BARBITURATE SCREEN, URINE NEGATIVE (NEGATIVE); BENZODIAZEPINES SCREEN,URINE NEGATIVE (NEGATIVE); CANNABINOID SCREEN,URINE NEGATIVE (NEGATIVE); COCAINE SCREEN,URINE NEGATIVE (NEGATIVE); METHADONE SCREEN, URINE NEGATIVE (NEGATIVE); OPIATE SCREEN,URINE NEGATIVE (NEGATIVE)
[2021-11-29 21:10] LABS: PHENCYCLIDINE SCREEN,URINE NEGATIVE (NEGATIVE)
[2021-11-30 07:44] LABS: BASOPHILS % (AUTO) 1.3 % (0.0-2.0); EOSINOPHILS % (AUTO) 2.2 % (1.0-6.0); HEMATOCRIT 36.1 % (41-53); HEMOGLOBIN 12.6 g/dL (13.5-17.5); LYMPHOCYTES # (AUTO) 1.7 K/uL (1.0-4.8); LYMPHOCYTES % (AUTO) 34.7 % (22.0-44.0); MEAN CORPUSCULAR HEMOGLOBIN 30.1 pg (26.0-34.0); MEAN CORPUSCULAR HGB CONC 34.8 G/dL (31.0-37.0); MEAN CORPUSCULAR VOLUME 87 fL (80-100); MONOCYTES # (AUTO) 0.5 K/uL (0.1-1.0); MONOCYTES % (AUTO) 9.7 % (2.0-9.0); NEUTROPHILS # (AUTO) 2.6 K/uL (1.8-7.7); NEUTROPHILS % (AUTO) 52.1 % (40.0-70.0); PLATELET COUNT (AUTO) 182 K/uL (150-450); RED BLOOD CELL COUNT(AUTO) 4.17 MIL/uL (4.50-5.90); RED CELL DISTRIBUTION WIDTH 13.6 % (11.5-14.5)
[2021-11-30 08:13] LABS: ALANINE AMINOTRANSFERASE 31 U/L (12-78); ALKALINE PHOSPHATASE 58 U/L (46-116); ANION GAP 4 mmol/L (8-16); ASPARTATE AMINOTRANSFERASE 34 U/L (15-37); BILIRUBIN,TOTAL 0.3 mg/dL (0.1-1.0); CALCIUM, TOTAL 8.5 mg/dL (8.8-10.5); CARBON DIOXIDE 29 mmol/L (22-29); CHLORIDE 104 mmol/L (98-107); CHOL/HDL RATIO 2.4 (4.2-7.3); CHOLESTEROL 120 mg/dL (131-200); CREATININE 0.67 mg/dL (0.60-1.30); FREE T4 (FREE THYROXINE) 1.21 ng/dL (0.76-1.46); GLUCOSE,RANDOM 92 mg/dL (70-110); HDL CHOLESTEROL 50 mg/dL (40-60); LDL CHOL (CALC.) 59 mg/dL (0-130); POTASSIUM 3.2 mmol/L (3.5-5.1); SODIUM SERUM 137 mmol/L (136-145); THYROID STIMULATING HORMONE 1.45 uIU/mL (0.36-3.74); TOTAL PROTEIN, SERUM 6.5 g/dL (6.4-8.2); TRIGLYCERIDES 54 mg/dL (15-150); UREA NITROGEN, BLOOD 6 mg/dL (7-18)
[2021-11-30 08:14] LABS: HEMOGLOBIN A1C 5.5 % (3.8-5.6)
[2021-11-30 08:18] LABS: GLOMERULAR FILTR. RATE CALC > 60 mL/min (>60)
[2021-11-30] MEDS ORDERED: TUBERCULIN, PURIFIED PROTEIN DERIVATIVE 5 TU/0.1 ML SYRINGE ID ONE (09:00)
[2021-11-30] MEDS: THIAMINE 100 MG TABLET PO SCH ×2 (10:20→17:13)
[2021-11-30] MEDS: NALTREXONE HCL 50 MG TABLET PO SCH (10:20)
[2021-11-30] MEDS: OMEGA-3/DHA/EPA/FISH OIL 1,000 MG CAPSULE PO SCH (10:20)
[2021-11-30] MEDS: CarBAMazepine 200 MG TABLET PO SCH ×2 (10:21→17:14)
[2021-11-30] MEDS: MULTIVITAMINS WITH MINERALS, THERAPEUTIC TABLET PO SCH (10:21)
[2021-11-30] MEDS: FOLIC ACID 1 MG TABLET PO SCH (10:21)
[2021-11-30 16:28] VITALS: BP 133/67
[2021-11-30 16:35] VITALS: BP 133/69
[2021-11-30] MEDS: DIVALPROEX SODIUM 500 MG ER TABLET PO SCH (20:20)
[2021-11-30] MEDS: MELATONIN 5 MG TABLET PO SCH (20:20)
[2021-11-30] MEDS ORDERED: QUEtiapine FUMARATE 200 MG TABLET PO SCH (21:00)
[2021-12-01] MEDS: THIAMINE 100 MG TABLET PO SCH ×2 (08:26→16:50)
[2021-12-01] MEDS: OMEGA-3/DHA/EPA/FISH OIL 1,000 MG CAPSULE PO SCH (08:26)
[2021-12-01] MEDS: NALTREXONE HCL 50 MG TABLET PO SCH (08:26)
[2021-12-01] MEDS: FOLIC ACID 1 MG TABLET PO SCH (08:26)
[2021-12-01] MEDS: CarBAMazepine 200 MG TABLET PO SCH ×2 (08:26→16:50)
[2021-12-01] MEDS: AmLODIPine BESYLATE 5 MG TABLET PO SCH (08:26)
[2021-12-01] MEDS: MULTIVITAMINS WITH MINERALS, THERAPEUTIC TABLET PO SCH (08:26)
[2021-12-01 08:59] VITALS: BP 140/89
[2021-12-01] MEDS ORDERED: NICOTINE 21 MG/24 HOUR PATCH TD PRN (09:00)
[2021-12-01] MEDS: POTASSIUM CHLORIDE 20 MEQ ER TABLET PO SCH ×2 (09:29→16:50)
[2021-12-01] MEDS: QUEtiapine FUMARATE 300 MG TABLET PO SCH (20:23)
[2021-12-01] MEDS: MELATONIN 5 MG TABLET PO SCH (20:23)
[2021-12-01] MEDS: DIVALPROEX SODIUM 500 MG ER TABLET PO SCH (20:23)
[2021-12-01 20:30] VITALS: BP 143/86
[2021-12-02] MEDS: AmLODIPine BESYLATE 5 MG TABLET PO SCH (08:23)
[2021-12-02] MEDS: NALTREXONE HCL 50 MG TABLET PO SCH (08:23)
[2021-12-02] MEDS: THIAMINE 100 MG TABLET PO SCH ×2 (08:23→16:38)
[2021-12-02] MEDS: CarBAMazepine 200 MG TABLET PO SCH ×2 (08:23→16:38)
[2021-12-02] MEDS: OMEGA-3/DHA/EPA/FISH OIL 1,000 MG CAPSULE PO SCH (08:23)
[2021-12-02] MEDS: MULTIVITAMINS WITH MINERALS, THERAPEUTIC TABLET PO SCH (08:23)
[2021-12-02] MEDS: FOLIC ACID 1 MG TABLET PO SCH (08:23)
[2021-12-02] MEDS: POTASSIUM CHLORIDE 20 MEQ ER TABLET PO SCH ×2 (08:23→16:38)
[2021-12-02] MEDS: NICOTINE 21 MG/24 HOUR PATCH TD SCH (08:24)
[2021-12-02 08:53] VITALS: BP 134/80
[2021-12-02] MEDS: DIVALPROEX SODIUM 500 MG ER TABLET PO SCH (20:23)
[2021-12-02] MEDS: MELATONIN 5 MG TABLET PO SCH (20:23)
[2021-12-02] MEDS: QUEtiapine FUMARATE 300 MG TABLET PO SCH (20:23)
[2021-12-02 20:30] VITALS: BP 147/85
[2021-12-03 07:10] LABS: ANION GAP 7 mmol/L (8-16); CARBON DIOXIDE 28 mmol/L (22-29); CHLORIDE 101 mmol/L (98-107); CREATININE 0.67 mg/dL (0.60-1.30); GLUCOSE,RANDOM 80 mg/dL (70-110); POTASSIUM 4.7 mmol/L (3.5-5.1); SODIUM SERUM 136 mmol/L (136-145); UREA NITROGEN, BLOOD 13 mg/dL (7-18)
[2021-12-03 07:17] LABS: GLOMERULAR FILTR. RATE CALC > 60 mL/min (>60)
[2021-12-03 08:37] VITALS: BP 138/87
[2021-12-03] MEDS: AmLODIPine BESYLATE 5 MG TABLET PO SCH (08:40)
[2021-12-03] MEDS: MULTIVITAMINS WITH MINERALS, THERAPEUTIC TABLET PO SCH (08:40)
[2021-12-03] MEDS: THIAMINE 100 MG TABLET PO SCH ×2 (08:40→16:25)
[2021-12-03] MEDS: NALTREXONE HCL 50 MG TABLET PO SCH (08:40)
[2021-12-03] MEDS: FOLIC ACID 1 MG TABLET PO SCH (08:40)
[2021-12-03] MEDS: CarBAMazepine 200 MG TABLET PO SCH ×2 (08:40→16:25)
[2021-12-03] MEDS: OMEGA-3/DHA/EPA/FISH OIL 1,000 MG CAPSULE PO SCH (08:41)
[2021-12-03] MEDS: NICOTINE 21 MG/24 HOUR PATCH TD SCH (08:41)
[2021-12-03] MEDS: DIVALPROEX SODIUM 500 MG ER TABLET PO SCH (20:09)
[2021-12-03] MEDS: MELATONIN 5 MG TABLET PO SCH (20:09)
[2021-12-03] MEDS: QUEtiapine FUMARATE 200 MG TABLET PO SCH (20:09)
[2021-12-03 20:17] VITALS: BP 144/86
[2021-12-04 08:38] VITALS: BP 115/80
[2021-12-04] MEDS: NICOTINE 21 MG/24 HOUR PATCH TD SCH (09:56)
[2021-12-04] MEDS: MULTIVITAMINS WITH MINERALS, THERAPEUTIC TABLET PO SCH (09:57)
[2021-12-04] MEDS: CarBAMazepine 200 MG TABLET PO SCH ×2 (09:57→17:05)
[2021-12-04] MEDS: FOLIC ACID 1 MG TABLET PO SCH (09:57)
[2021-12-04] MEDS: NALTREXONE HCL 50 MG TABLET PO SCH (09:57)
[2021-12-04] MEDS: THIAMINE 100 MG TABLET PO SCH ×2 (09:58→17:05)
[2021-12-04] MEDS: OMEGA-3/DHA/EPA/FISH OIL 1,000 MG CAPSULE PO SCH (09:58)
[2021-12-04] MEDS: AmLODIPine BESYLATE 5 MG TABLET PO SCH (09:58)
[2021-12-04] MEDS: QUEtiapine FUMARATE 200 MG TABLET PO SCH (20:02)
[2021-12-04 20:11] VITALS: BP 134/82
[2021-12-04] MEDS: DIVALPROEX SODIUM 500 MG ER TABLET PO SCH (20:35)
[2021-12-04] MEDS: MELATONIN 5 MG TABLET PO SCH (20:35)
[2021-12-05 08:18] VITALS: BP 136/83
[2021-12-05] MEDS: MULTIVITAMINS WITH MINERALS, THERAPEUTIC TABLET PO SCH (08:21)
[2021-12-05] MEDS: NALTREXONE HCL 50 MG TABLET PO SCH (08:21)
[2021-12-05] MEDS: OMEGA-3/DHA/EPA/FISH OIL 1,000 MG CAPSULE PO SCH (08:21)
[2021-12-05] MEDS: AmLODIPine BESYLATE 5 MG TABLET PO SCH (08:21)
[2021-12-05] MEDS: FOLIC ACID 1 MG TABLET PO SCH (08:21)
[2021-12-05] MEDS: CarBAMazepine 200 MG TABLET PO SCH ×2 (08:21→16:42)
[2021-12-05] MEDS: NICOTINE 21 MG/24 HOUR PATCH TD SCH (08:21)
[2021-12-05] MEDS: THIAMINE 100 MG TABLET PO SCH ×2 (08:21→16:42)
[2021-12-05 20:20] VITALS: BP 144/83
[2021-12-05] MEDS: QUEtiapine FUMARATE 200 MG TABLET PO SCH (20:27)
[2021-12-05] MEDS: MELATONIN 5 MG TABLET PO SCH (20:27)
[2021-12-05] MEDS: DIVALPROEX SODIUM 500 MG ER TABLET PO SCH (20:27)
[2021-12-06 08:45] VITALS: BP 146/63
[2021-12-06] MEDS: CarBAMazepine 200 MG TABLET PO SCH (09:46)
[2021-12-06] MEDS: OMEGA-3/DHA/EPA/FISH OIL 1,000 MG CAPSULE PO SCH (09:46)
[2021-12-06] MEDS: MULTIVITAMINS WITH MINERALS, THERAPEUTIC TABLET PO SCH (09:46)
[2021-12-06] MEDS: NALTREXONE HCL 50 MG TABLET PO SCH (09:46)
[2021-12-06] MEDS: AmLODIPine BESYLATE 5 MG TABLET PO SCH (09:46)
[2021-12-06] MEDS: THIAMINE 100 MG TABLET PO SCH (09:46)
[2021-12-06] MEDS: FOLIC ACID 1 MG TABLET PO SCH (09:46)
[2021-12-06] MEDS: NICOTINE 21 MG/24 HOUR PATCH TD SCH (09:47)
[2021-12-06] MEDS ORDERED: OMEG-108 PO (10:32)
[2021-12-06] MEDS ORDERED: DIVA-80 PO (10:32)
[2021-12-06] MEDS ORDERED: QUET200T30 PO (10:32)
[2021-12-06] MEDS ORDERED: MELA5TAB40 PO (10:32)
[2021-12-06] MEDS ORDERED: AMLO-257 PO (10:32)
[2021-12-06] MEDS ORDERED: NALT50TA PO (10:32)
[2021-12-06] MEDS ORDERED: CARB200T6 PO (10:32)
== END 2021-12-06 14:25 | disposition home or self-care (01) | DRG 885 ==
LOC: EMS 17:45 → B2S 11-30 12:23
PROVIDERS: ADMIT Psychiatry & Neurology Psychiatry; ATTEND Psychiatry & Neurology Psychiatry
DX: F25.9 Schizoaffective disorder, unspecified (principal); I11.0 Hypertensive heart disease with heart failure; B19.20 Unspecified viral hepatitis C without hepatic coma; R45.851 Suicidal ideations; Z20.822 Contact with and (suspected) exposure to COVID-19; K21.9 Gastro-esophageal reflux disease without esophagitis; I50.9 Heart failure, unspecified; J44.9 Chronic obstructive pulmonary disease, unspecified; F17.210 Nicotine dependence, cigarettes, uncomplicated; Z88.5 Allergy status to narcotic agent; Z88.8 Allergy status to other drugs, medicaments and biological substances; Z55.9 Problems related to education and literacy, unspecified; Z59.9 Problem related to housing and economic circumstances, unspecified; Z63.9 Problem related to primary support group, unspecified; Z65.3 Problems related to other legal circumstances; Z91.14 Patient's other noncompliance with medication regimen; Z91.19 Patient's noncompliance with other medical treatment and regimen; I25.2 Old myocardial infarction; Z59.00 Homelessness unspecified
CPT/HCPCS: 80048; 80053; 80061; 83036; 84439; 84443; 85025; 86592; 99285; G0480; Q9967

== ENCOUNTER 2022-04-18 15:09 | Emergency (ER) | payer OTHER ==
[~2022-04-18] VITALS: Ht 188 cm; Wt 74.5 kg
[~2022-04-18 15:09] MED LIST changes: -GABA-1181 PO; +MELA5TAB40 PO; +NALT50TA PO; -OMEG-108 PO; +OMEG-135 PO; +QUET200T30 PO; -QUET300T19 PO
[2022-04-18 15:20] VITALS: BP 167/85
== END 2022-04-18 17:42 | disposition left against medical advice (07) ==
LOC: EMS 15:09
DX: R42 Dizziness and giddiness (principal); I10 Essential (primary) hypertension; M79.602 Pain in left arm; Z53.21 Procedure and treatment not carried out due to patient leaving prior to being seen by health care provider

== ENCOUNTER 2022-07-19 15:00 | Emergency (ER) | payer OTHER ==
[~2022-07-19] VITALS: Ht 188 cm; Wt 74.5 kg
[2022-07-19] MEDS ORDERED: LIDOCAINE 5% TRANSDERMAL PATCH TD ONE (16:00)
[2022-07-19] MEDS ORDERED: KETOROLAC TROMETHAMINE 30 MG/ML VIAL IM ONE (16:00)
[2022-07-19] MEDS ORDERED: BACLOFEN 10 MG TABLET PO ONE (16:00)
[2022-07-19 18:32] VITALS: BP 147/80
[2022-07-19] MEDS ORDERED: BACL10TA PO (18:33)
[2022-07-19] MEDS ORDERED: IBUP-1492 PO (18:35)
== END 2022-07-19 18:52 | disposition home or self-care (01) ==
LOC: EMS 15:06
DX: M54.50 Low back pain, unspecified (principal); F31.9 Bipolar disorder, unspecified; I11.0 Hypertensive heart disease with heart failure; I50.9 Heart failure, unspecified; J44.9 Chronic obstructive pulmonary disease, unspecified; F20.9 Schizophrenia, unspecified; F17.210 Nicotine dependence, cigarettes, uncomplicated; F15.90 Other stimulant use, unspecified, uncomplicated; Z59.00 Homelessness unspecified; Z88.5 Allergy status to narcotic agent; Z88.8 Allergy status to other drugs, medicaments and biological substances
CPT/HCPCS: 99283; 72100; 96372; J1885